=== PATIENT | male | born 1970 | race Hispanic/Latino ===

== ENCOUNTER 2018-09-04 10:24 | Inpatient (IN) | payer MEDICAID, MEDICARE ==
[2018-09-04 10:24] VITALS: BMI 55.9
--- NOTE | 2018-09-04 10:47 | C.PDOC ---
History Of Present Illness 47 y/o male with PMH of hyperglycemia, asthma, depression, HTN, morbid obesity, presents for evaluation of a right lateral lower leg wound, present for the last 2 days. He denies any trauma or injury. Patient noticed the area became red, swollen, painful, and yesterday he developed a black eschar which began draining blood. Pain worsens with walking. He denies any nausea, vomiting, fever, chills, chest pain, SOB, numbness, weakness, paresthesias, dizziness, headache, vision changes, or any other associated symptoms. PMD: Dr. Justen Ochoa Time Seen by Provider: 09/04/18 10:38 Chief Complaint (Nursing): Lower Extremity Problem/Injury History Per: Patient History/Exam Limitations: no limitations Onset/Duration Of Symptoms: Days Current Symptoms Are (Timing): Still Present Past Medical History Reviewed: Historical Data, Nursing Documentation, Vital Signs Vital Signs: Last Vital Signs Temp 97.6 F 09/04/18 10:30 Pulse 106 H 09/04/18 10:30 Resp 18 09/04/18 10:30 BP 125/83 09/04/18 10:30 Pulse Ox 97 09/04/18 10:30 - Medical History PMH: Asthma, Depression, HTN, Hyperlipidemia Denies: Diabetes, Hepatitis, HIV, Chronic Kidney Disease, Seizures, Sexually Transmitted Disease - [facility] Procedures APPLICATION OF SPLINT (12/08/14) DPT ADMINISTRATION (02/10/15) INJECT/INFUSE NEC (10/03/14) TETANUS TOXOID ADMINIST (02/19/05) VENOUS CATHETERIZATION NEC (11/27/12) Family History: States: Unknown Family Hx - Social History Hx Tobacco Use: Yes Hx Alcohol Use: Yes Hx Substance Use: No - Immunization History Hx Tetanus Toxoid Vaccination: No Hx Influenza Vaccination: No Hx Pneumococcal Vaccination: No Review Of Systems Constitutional: Negative for: Fever, Chills, Sweats Eyes: Negative for: Vision Change ENT: Negative for: Nose Congestion Cardiovascular: Negative for: Chest Pain, Palpitations, Light Headedness Respiratory: Negative for: Cough, Shortness of Breath Gastrointestinal: Negative for: Nausea, Vomiting, Abdominal Pain Musculoskeletal: Positive for: Leg Pain (RLE), Other (Swelling/open wound to RLE) Skin: Positive for: Other (redness, swelling, eschar, fluctuance to right lower lateral calf) Neurological: Negative for: Weakness, Numbness, Incoordination, Headache, Dizziness Physical Exam - Physical Exam Appears: Non-toxic, No Acute Distress, Unkempt, Other (Morbidly obese) Skin: Warm, Dry, Other (right lateral calf: 3cm diameter area of fluctuance with central eschar and surrounding warmth and erythema; small amount of bloody d rainage noted; right heel with chronic ulcer, no signs of acute infection) Head: Atraumatic, Normacephalic Eye(s): bilateral: Normal Inspection, PERRL, EOMI Oral Mucosa: Moist Neck: Normal ROM, Supple Chest: Symmetrical Cardiovascular: Rhythm Regular, No Murmur Respiratory: Normal Breath Sounds, No Accessory Muscle Use Gastrointestinal/Abdominal: Soft, No Tenderness, No Distention Extremity: Normal ROM, Tenderness (right lateral calf with associated redness and warmth; suspicious for cellulitis ), Capillary Refill (<2s), No Deformity, Swelling (bilateral edema; R>L), Other (See Skin Exam) Extremity: Bilateral: Atraumatic, Normal ROM Pulses: Left Dorsalis Pedis: Normal, Right Dorsalis Pedis: Normal Neurological/Psych: Oriented x3, Normal Speech, Normal Motor, Normal Sensation Gait: Steady ED Course And Treatment - Laboratory Results Result Diagrams: 09/04/18 11:10 09/04/18 11:10 ECG: Viewed By Me (Signed by Dr. Gonsalez) ECG Rhythm: Sinus Rhythm ECG Interpretation: No Acute Changes Interpretation Of ECG: Rate 93; NSR; Normal Intervals; No STEMI or other signs of acute ischemia Rate From EC O2 Sat by Pulse Oximetry: 97 (RA) Pulse Ox Interpretation: Normal - Radiology CXR: Viewed By Me, Read By Radiologist CXR Interpretation: Yes: No Acute Disease Medical Decision Making Medical Decision Making: Initial Plan: - EKG - Labs - Chest x-ray - Doppler US, bilateral LE - Surgical consult - IV fluids - Tylenol Labwork significant for glucose of 336, will order IVF, glucose has been elevated in the past, pt not on medication; insulin naive. discussed with ED attending Dr. Gonsalez who agrees with plan of care otherwise unremarkable 11:[address] Romel Ochoa, accepts patient for admission on his service to med/surg floor with diagnosis of right lower leg cellulitis with abscess. Requests surgical consult with Dr. Torres 11:[address] Carey, surgery, as per Dr. Ochoa's request. Recommends wound culture, XR and CT of right lower extremity, type and screen, NPO diet, ID consult. States patient may need OR debridement. Expresses concern for necrotizing fasciitis. States the surgical and ID team will take responsibility for antibiotic choice. global president notified, and will come to evaluate patient in the ED. 12:45 Received call from vascular lab, patient is refusing venous duplex studies. global president here to evaluate patient at bedside Disposition Counseled Patient/Family Regarding: Studies Performed, Diagnosis - Disposition Disposition: HOSPITALIZED Disposition Time: 11:45 Condition: STABLE - Clinical Impression Clinical Impression: Abscess of leg, right, Lower extremity cellulitis, Hyperglycemia - PA / WEB PAGE DEVELOPER / Resident Statement MD/DO has reviewed & agrees with the documentation as recorded. - Scribe Statement The provider has reviewed the documentation as recorded by the Ham Medina All medical record entries made by the Emoryibcristian were at my direction and personally dictated by me. I have reviewed the chart and agree that the record accurately reflects my personal performance of the history, physical exam, medical decision making, and the department course for this patient. I have also personally directed, reviewed, and agree with the discharge instructions and disposition.
[2018-09-04 11:17] LABS: BASO % 0.6 % (0.0-2.0); EOS % 0.9 % (0.0-4.0); LYMPH # 0.7 K/uL (1.0-4.3); MEAN CORPUSCULAR HEMOGLOBIN 30.6 pg (27.0-31.0); MEAN CORPUSCULAR HGB CONC 32.6 g/dL (33.0-37.0); MEAN PLATELET VOLUME 7.5 fL (7.2-11.7); MONO # 0.3 K/uL (0.0-0.8); MONO % 5.5 % (0.0-10.0); NEUT # 3.6 K/uL (1.8-7.0); RBC 4.24 Mil/uL (4.40-5.90); RED CELL DISTRIBUTION WIDTH 14.7 % (11.5-14.5); WHITE BLOOD COUNT 4.7 K/uL (4.8-10.8)
[2018-09-04 11:18] LABS: MEAN CELL VOLUME 93.9 fL (80.0-94.0)
[2018-09-04 11:26] LABS: ALB/GLOB RATIO 1.2 (1.0-2.1); ALBUMIN 3.9 g/dL (3.5-5.0); ALT/SGPT 43 U/L (21-72); AST/SGOT 23 U/L (17-59); BLOOD UREA NITROGEN 13 mg/dL (9-20); CALCIUM 8.6 mg/dl (8.6-10.4); GFR NON-AFRICAN AMERICAN > 60; INR 1.2; PROTHROMBIN TIME 13.3 SECONDS (9.7-12.2)
[2018-09-04] MEDS ORDERED: Sodium Chloride 0.9% 1,000 ML IV ONE (11:30)
--- NOTE | 2018-09-04 13:16 | RAD ---
Date of service: 09/04/2018 PROCEDURE: Radiographs of the right tibia and fibula. HISTORY: wound lateral calf COMPARISON: None available TECHNIQUE: Frontal and lateral views obtained. FINDINGS: BONES: Bone alignment and mineralization are normal. There is no acute displaced fracture or bone destruction. No evidence for bone erosion. JOINT SPACES: Unremarkable. OTHER FINDINGS: Mild subcutaneous edema in the leg. IMPRESSION: No acute fracture or bone destruction. No radiographic evidence for osteomyelitis.
--- NOTE | 2018-09-04 13:18 | RAD ---
Date of service: 09/04/2018 PROCEDURE: Right Foot Radiographs. HISTORY: chronic heel wound COMPARISON: None. FINDINGS: BONES: Bone alignment and mineralization are normal. There is no acute displaced fracture or bone destruction. There is sclerosis in the posterior calcaneus. JOINTS: Normal. SOFT TISSUES: There is a large soft tissue defect in the heel. OTHER FINDINGS: None. IMPRESSION: Large soft tissue defect in the heel corresponding to known ulcer. Sclerosis in the posterior calcaneus could be reactive however underlying osteomyelitis cannot be entirely excluded. If clinically indicated, correlation with MRI without and with intravenous contrast may be performed.
--- NOTE | 2018-09-04 13:19 | RAD ---
Date of service: 09/04/2018 HISTORY: admission COMPARISON: 12/03/2012. FINDINGS: LUNGS: The lungs are well inflated and clear. PLEURA: No pleural effusions or pneumothorax. CARDIOVASCULAR: The heart is normal in size. No aortic atherosclerotic calcifications present. OSSEOUS STRUCTURES: Within normal limits for the patient's age. VISUALIZED UPPER ABDOMEN: Normal. OTHER FINDINGS: None. IMPRESSION: No active pulmonary disease.
--- NOTE | 2018-09-04 14:21 | CP.PCM.CON ---
<KeithaanTyler aleman D - Last Filed: 09/04/18 14:00> History of Present Illness - History of Present Illness History of Present Illness: SURGERY CONSULT NOTE FOR DR. CAREY Reason: right leg wound 47M with PMHx of cellulitis, HTN, hyperlipidemia presents with right leg swelling and a necrotic lesion on his right lower leg. The lesion is painful and he rates the pain 7/10. The patient describes the pain as sharp and constant. The pain is mostly around the lesion and does not radiate anywhere. There is erythema around the swelling and soreness. The lesion He also has bilateral non-pitting edema. He took Ibuprofen 800mg yesterday which minimally alleviated his pain. The patient denies fever, chills, loss of sensation, sweating, chest pain, joint pain, muscle pain, SOB. The patient gained 120 lbs in the last year. PMHx: HTN, Asthma, Hyperlipidemia, Depression, Psoriasis, cellulitis PSurgical Hx: None Past Hospitalizations: Bilateral Cellulitis ([facility] in 2016) Allergies: NKDA Meds: Proair (use when needed), Ibuprofen (800mg) FHx: Mother (67, HTN), Father (history not known) Social: 25py smoking hx, smokes weed (a joint/wk), occassionally drinks alcohol, lives in [place], No current job Past Patient History - Infectious Disease Hx of Infectious Diseases: None - Tetanus Immunizations Tetanus Immunization: Unknown - Past Social History Smoking Status: Never Smoked - CARDIAC Hx Hypertension: Yes - PULMONARY Hx Asthma: Yes - NEUROLOGICAL Hx Seizures: No - HEENT Hx HEENT Problems: No - RENAL Hx Chronic Kidney Disease: No - ENDOCRINE/METABOLIC Hx Endocrine Disorders: Yes Hx Diabetes Mellitus Type 2: Yes - HEMATOLOGICAL/ONCOLOGICAL Hx Human Immunodeficiency Virus (HIV): No - INTEGUMENTARY Hx Dermatological Problems: No - MUSCULOSKELETAL/RHEUMATOLOGICAL Hx Musculoskeletal Disorders: No - GASTROINTESTINAL Hx Gastrointestinal Disorders: No - GENITOURINARY/GYNECOLOGICAL Hx Sexually Transmitted Disorders: No - PSYCHIATRIC Hx Depression: Yes Hx Substance Use: No - SURGICAL HISTORY Hx Surgeries: No - ANESTHESIA Hx Anesthesia: No Hx Anesthesia Reactions: No Hx Malignant Hyperthermia: No Meds Allergies/Adverse Reactions: Allergies Allergy/AdvReac Type Severity Reaction Status Date / Time No Known Allergies Allergy Verified 08/07/18 22:26 - Medications Medications: Current Medications Piperacillin Sod/Tazobactam (Sod 3.375 gm/ Sodium Chloride) 100 mls @ 200 mls/hr IVPB Q6H [facility]; Protocol Vancomycin HCl 1 gm/ Sodium (Chloride) 250 mls @ 166.7 mls/hr IVPB Q24H [facility]; Protocol Physical Exam - Constitutional Additional comments: Uncomfortable 2/2 pain - Head Exam Head Exam: ATRAUMATIC, NORMOCEPHALIC - Respiratory Exam Respiratory Exam: Clear to Auscultation Bilateral, NORMAL BREATHING PATTERN - Cardiovascular Exam Cardiovascular Exam: REGULAR RHYTHM, +S1, +S2 - GI/Abdominal Exam GI & Abdominal Exam: Normal Bowel Sounds, Soft. absent: Distended, Firm, Guarding, Rebound, Rigid, Tenderness - Extremities Exam Additional comments: right lower extremity lesion in the lower leg on the lateral side measuring 2.5 x 2.5 inches surrounded by area of mild erythema. Underneath lesion which was necrotic skin, was serosanguinous/purulent fluid. Approximately 4cc of fluid Area tender to palpation Normal sensation Normal motor Bilateral non-pitting edema and thick skin Dopplerable signals DP/PT b/l - Neurological Exam Neurological exam: Alert, Oriented x3 - Psychiatric Exam Psychiatric exam: Normal Affect, Normal Mood - Skin Skin Exam: Dry, Intact, Normal Color, Warm Results - Vital Signs Recent Vital Signs: Last Vital Signs Temp 97.7 F 09/04/18 13:58 Pulse 91 H 09/04/18 13:58 Resp 18 09/04/18 13:58 BP 128/66 09/04/18 13:58 Pulse Ox 95 09/04/18 13:58 - Labs Result Diagrams: 09/04/18 11:10 09/04/18 11:10 Labs: Laboratory Results - last 24 hr 09/04/18 09/04/18 09/04/18 11:10 11:10 11:10 WBC 4.7 L RBC 4.24 L Hgb 13.0 Hct 39.8 MCV 93.9 D MCH 30.6 MCHC 32.6 L RDW 14.7 H Plt Count 131 MPV 7.5 Neut % (Auto) 78.0 H Lymph % (Auto) 15.0 L [place] % (Auto) 5.5 Eos % (Auto) 0.9 Baso % (Auto) 0.6 Neut # (Auto) 3.6 Lymph # (Auto) 0.7 L [place] # (Auto) 0.3 Eos # (Auto) 0.0 Baso # (Auto) 0.0 PT 13.3 H INR 1.2 APTT 32 Sodium 135 Potassium 4.4 Chloride 98 Carbon Dioxide 31 H Anion Gap 11 BUN 13 Creatinine 0.8 Est GFR ( Amer) > 60 Est GFR (Non-Af Amer) > 60 Random Glucose 336 H D Calcium 8.6 Total Bilirubin 0.9 AST 23 ALT 43 Alkaline Phosphatase 99 Total Protein 7.3 Albumin 3.9 Globulin 3.4 Albumin/Globulin Ratio 1.2 Assessment & Plan - Assessment and Plan (Free Text) Assessment: 47M with right lower extremity abscess and cellulitis Plan: -NPO -IVF -Pain control -antibiotics -prepare for OR for debridement -Discussed with Dr. Carey -Tyler Hernandez, PGY3 <Benoit Carey - Last Filed: 09/09/18 21:46> Meds - Medications Medications: Current Medications Albuterol (Ventolin Hfa 90 Mcg/Actuation (8 G)) 2 puff IH RQ6 PRN PRN Reason: Shortness of Breath Hydrochlorothiazide (Hydrodiuril) 25 mg PO DAILY [facility] Last Admin: 09/09/18 14:04 Dose: 25 mg Vancomycin HCl 1,250 mg/ (Sodium Chloride) 250 mls @ 166.6 mls/hr IVPB Q12H [facility]; Protocol Insulin Aspart (Novolog) 0 unit SC ACHS [facility]; Protocol Last Admin: 09/09/18 21:28 Dose: Not Given Morphine Sulfate (Morphine) 2 mg IVP Q6H PRN PRN Reason: Pain, severe (8-10) Last Admin: 09/09/18 20:50 Dose: 2 mg Pantoprazole Sodium (Protonix Ec Tab) 40 mg PO DAILY [facility] Last Admin: 09/09/18 09:25 Dose: 40 mg Results - Vital Signs Recent Vital Signs: Last Vital Signs Temp 98.2 F 09/09/18 17:24 Pulse 74 09/09/18 17:24 Resp 20 09/09/18 17:24 BP 132/78 09/09/18 17:24 Pulse Ox 94 L 09/09/18 17:24 - Labs Result Diagrams: 09/08/18 11:18 09/08/18 11:18 Labs: Laboratory Results - last 24 hr 09/08/18 09/09/18 09/09/18 21:16 04:04 05:28 POC Glucose (mg/dL) 211 H 190 H Vancomycin Trough 15.2 H 09/09/18 09/09/18 11:39 16:41 POC Glucose (mg/dL) 234 H 160 H Vancomycin Trough Attending/Attestation - Attestation I have personally seen and examined this patient.: Yes I have fully participated in the care of the patient.: Yes I have reviewed all pertinent clinical information: Yes Notes (Text): Pt was seen and examined at bedside Agree with above note and assessment Pt with right leg cellulitis and open wound Right Leg: Mild tender, Cellulitis present Labs and radiology reviewed Ass: Leg cellulitis, wound necrosis, morbid obesity Plan : NPO, IVF OR for Leg wound debridement and washout IV antibiotics ID consult Control blood sugar Plan d.w pt in detail. Risk and benefit explained in detail.
[2018-09-04] MEDS: Piperacillin/Tazobact 3.375 GM in Sodium Chloride 100 ML IVPB SCH ×2 (16:35→20:15)
--- NOTE | 2018-09-04 17:59 | CP.PCM.HP ---
Past Patient History - Infectious Disease Hx of Infectious Diseases: None - Tetanus Immunizations Tetanus Immunization: Unknown - Past Social History Smoking Status: Never Smoked - CARDIAC Hx Hypertension: Yes - PULMONARY Hx Asthma: Yes - NEUROLOGICAL Hx Seizures: No - HEENT Hx HEENT Problems: No - RENAL Hx Chronic Kidney Disease: No - ENDOCRINE/METABOLIC Hx Endocrine Disorders: Yes Hx Diabetes Mellitus Type 2: Yes - HEMATOLOGICAL/ONCOLOGICAL Hx Human Immunodeficiency Virus (HIV): No - INTEGUMENTARY Hx Dermatological Problems: No - MUSCULOSKELETAL/RHEUMATOLOGICAL Hx Musculoskeletal Disorders: No - GASTROINTESTINAL Hx Gastrointestinal Disorders: No - GENITOURINARY/GYNECOLOGICAL Hx Sexually Transmitted Disorders: No - PSYCHIATRIC Hx Depression: Yes Hx Substance Use: No - SURGICAL HISTORY Hx Surgeries: No - ANESTHESIA Hx Anesthesia: No Hx Anesthesia Reactions: No Hx Malignant Hyperthermia: No Meds Allergies/Adverse Reactions: Allergies Allergy/AdvReac Type Severity Reaction Status Date / Time No Known Allergies Allergy Verified 08/07/18 22:26 Physical Exam - Constitutional Appears: Well - Head Exam Head Exam: ATRAUMATIC, NORMAL INSPECTION, NORMOCEPHALIC - Eye Exam Eye Exam: EOMI, Normal appearance, PERRL Pupil Exam: NORMAL ACCOMODATION, PERRL - ENT Exam ENT Exam: Mucous Membranes Moist, Normal Exam - Neck Exam Neck exam: Positive for: Normal Inspection - Respiratory Exam Respiratory Exam: Decreased Breath Sounds - Cardiovascular Exam Cardiovascular Exam: REGULAR RHYTHM, +S1, +S2 - GI/Abdominal Exam GI & Abdominal Exam: Diminished Bowel Sounds, Soft - Rectal Exam Rectal Exam: Deferred Results - Vital Signs Recent Vital Signs: Last Vital Signs Temp 97.9 F 09/04/18 15:00 Pulse 90 09/04/18 15:00 Resp 20 09/04/18 15:00 BP 153/84 H 09/04/18 15:00 Pulse Ox 95 09/04/18 15:00 - Labs Result Diagrams: 09/04/18 11:10 09/04/18 11:10 Labs: Laboratory Results - last 24 hr 09/04/18 09/04/18 09/04/18 11:10 11:10 11:10 WBC 4.7 L RBC 4.24 L Hgb 13.0 Hct 39.8 MCV 93.9 D MCH 30.6 MCHC 32.6 L RDW 14.7 H Plt Count 131 MPV 7.5 Neut % (Auto) 78.0 H Lymph % (Auto) 15.0 L [place] % (Auto) 5.5 Eos % (Auto) 0.9 Baso % (Auto) 0.6 Neut # (Auto) 3.6 Lymph # (Auto) 0.7 L [place] # (Auto) 0.3 Eos # (Auto) 0.0 Baso # (Auto) 0.0 PT 13.3 H INR 1.2 APTT 32 Sodium 135 Potassium 4.4 Chloride 98 Carbon Dioxide 31 H Anion Gap 11 BUN 13 Creatinine 0.8 Est GFR ( Amer) > 60 Est GFR (Non-Af Amer) > 60 POC Glucose (mg/dL) Random Glucose 336 H D Calcium 8.6 Total Bilirubin 0.9 AST 23 ALT 43 Alkaline Phosphatase 99 Total Protein 7.3 Albumin 3.9 Globulin 3.4 Albumin/Globulin Ratio 1.2 09/04/18 16:04 WBC RBC Hgb Hct MCV MCH MCHC RDW Plt Count MPV Neut % (Auto) Lymph % (Auto) [place] % (Auto) Eos % (Auto) Baso % (Auto) Neut # (Auto) Lymph # (Auto) [place] # (Auto) Eos # (Auto) Baso # (Auto) PT INR APTT Sodium Potassium Chloride Carbon Dioxide Anion Gap BUN Creatinine Est GFR ( Amer) Est GFR (Non-Af Amer) POC Glucose (mg/dL) 214 H Random Glucose Calcium Total Bilirubin AST ALT Alkaline Phosphatase Total Protein Albumin Globulin Albumin/Globulin Ratio
--- NOTE | 2018-09-04 18:51 | CP.PCM.PN ---
<Tyler Hernandez - Last Filed: 09/04/18 18:51> Subjective - Date & Time of Evaluation Date of Evaluation: 09/04/18 Time of Evaluation: 15:00 - Subjective Subjective: Procedure Note for Dr. Carey PRE-OP DIAGNOSIS: Left leg abscess POST-OP DIAGNOSIS: Left leg abscess PROCEDURE: incision and drainage of abscess Performing Physician: Mary, PGY3, Anali, PGY3, Sarahi, PGY4 PROCEDURE: A timeout protocol was performed prior to initiating the procedure. The area was prepared and draped in the usual, sterile manner. The necrotic portion of the wound was debrided with sharp instruments taking care to maintain normal tissue. Below the necrotic tissue was serosanguinous/purulent material. The abscess was explored thoroughly and sequestered pockets were opened. There was no bleeding.Dressed with 4*4 and tape Followup: The patient tolerated the procedure well without complications. Standard post-procedure care is explained and return precautions are given. Objective - Vital Signs/Intake and Output Vital Signs (last 24 hours): Temp Pulse Resp BP Pulse Ox 97.9 F 90 20 153/84 H 95 09/04/18 15:00 09/04/18 15:00 09/04/18 15:00 09/04/18 15:00 09/04/18 18:18 - Medications Medications: Current Medications Albuterol (Ventolin Hfa 90 Mcg/Actuation (8 G)) 2 puff IH Q6 PRN PRN Reason: Shortness of Breath Piperacillin Sod/Tazobactam (Sod 3.375 gm/ Sodium Chloride) 100 mls @ 200 mls/hr IVPB Q6H [facility]; Protocol Last Admin: 09/04/18 16:35 Dose: 200 mls/hr Vancomycin HCl 1 gm/ Sodium (Chloride) 250 mls @ 166.7 mls/hr IVPB Q24H [facility]; Protocol Last Admin: 09/04/18 16:36 Dose: 166.7 mls/hr Sodium Chloride (Sodium Chloride 0.9%) 1,000 mls @ 125 mls/hr IV .Q8H [facility] Morphine Sulfate (Morphine) 2 mg IVP Q6H PRN PRN Reason: Pain, severe (8-10) Last Admin: 09/04/18 18:42 Dose: 2 mg Pantoprazole Sodium (Protonix Ec Tab) 40 mg PO DAILY [facility] - Labs Labs: 09/04/18 11:10 09/04/18 11:10 PT 13.3 SECONDS (9.7-12.2) H 09/04/18 11:10 INR 1.2 09/04/18 11:10 APTT 32 SECONDS (21-34) 09/04/18 11:10 <Benoit Carey - Last Filed: 09/09/18 21:48> Objective - Vital Signs/Intake and Output Vital Signs (last 24 hours): Temp Pulse Resp BP Pulse Ox 98.2 F 74 20 132/78 94 L 09/09/18 17:24 09/09/18 17:24 09/09/18 17:24 09/09/18 17:24 09/09/18 17:24 Intake and Output: 09/09/18 09/10/18 18:59 06:59 Intake Total 1050 Balance 1050 - Medications Medications: Current Medications Albuterol (Ventolin Hfa 90 Mcg/Actuation (8 G)) 2 puff IH RQ6 PRN PRN Reason: Shortness of Breath Hydrochlorothiazide (Hydrodiuril) 25 mg PO DAILY [facility] Last Admin: 09/09/18 14:04 Dose: 25 mg Vancomycin HCl 1,250 mg/ (Sodium Chloride) 250 mls @ 166.6 mls/hr IVPB Q12H [facility]; Protocol Insulin Aspart (Novolog) 0 unit SC ACHS [facility]; Protocol Last Admin: 09/09/18 21:28 Dose: Not Given Morphine Sulfate (Morphine) 2 mg IVP Q6H PRN PRN Reason: Pain, severe (8-10) Last Admin: 09/09/18 20:50 Dose: 2 mg Pantoprazole Sodium (Protonix Ec Tab) 40 mg PO DAILY [facility] Last Admin: 09/09/18 09:25 Dose: 40 mg - Labs Labs: 09/08/18 11:18 09/08/18 11:18 PT 13.3 SECONDS (9.7-12.2) H 09/04/18 11:10 INR 1.2 09/04/18 11:10 APTT 32 SECONDS (21-34) 09/04/18 11:10 Attending/Attestation - Attestation I have personally seen and examined this patient.: Yes I have fully participated in the care of the patient.: Yes I have reviewed all pertinent clinical information, including history, physical exam and plan: Yes Notes (Text): Correct site: Right leg wound
[2018-09-04] MEDS ORDERED: Iodixanol 320 MG/ML 100 ML BOTTLE IV ONE (20:30)
[2018-09-04] MEDS: Sodium Chloride 0.9% 1,000 ML IV SCH (22:18)
[2018-09-04] MEDS: Albuterol HFA 90 mcg/actuation (8 g) IH PRN (23:33)
[2018-09-05] MEDS: Piperacillin/Tazobact 3.375 GM in Sodium Chloride 100 ML IVPB SCH ×4 (01:24→20:03)
[2018-09-05 07:42] LABS: BASO % 0.6 % (0.0-2.0); EOS # 0.1 K/uL (0.0-0.7); EOS % 1.8 % (0.0-4.0); HEMOGLOBIN 12.2 g/dL (12.0-18.0); LYMPH # 0.8 K/uL (1.0-4.3); LYMPH % 22.6 % (20.0-40.0); MEAN CELL VOLUME 93.9 fL (80.0-94.0); MEAN CORPUSCULAR HEMOGLOBIN 31.2 pg (27.0-31.0); MEAN CORPUSCULAR HGB CONC 33.2 g/dL (33.0-37.0); MEAN PLATELET VOLUME 7.5 fL (7.2-11.7); MONO # 0.2 K/uL (0.0-0.8); MONO % 6.2 % (0.0-10.0); NEUT # 2.5 K/uL (1.8-7.0); NEUT % 68.8 % (50.0-75.0); RBC 3.93 Mil/uL (4.40-5.90); RED CELL DISTRIBUTION WIDTH 14.6 % (11.5-14.5); WHITE BLOOD COUNT 3.6 K/uL (4.8-10.8)
[2018-09-05 07:57] LABS: BLOOD UREA NITROGEN 16 mg/dL (9-20); CALCIUM 8.5 mg/dl (8.6-10.4); GFR NON-AFRICAN AMERICAN > 60
[2018-09-05] MEDS: Sodium Chloride 0.9% 1,000 ML IV SCH ×2 (08:37→14:08)
[2018-09-05] MEDS: Pantoprazole 40 mg EC Tab PO SCH (11:18)
--- NOTE | 2018-09-05 12:30 | CP.PCM.PN ---
<Sara Briones - Last Filed: 09/05/18 12:28> Subjective - Date & Time of Evaluation Date of Evaluation: 09/05/18 Time of Evaluation: 12:28 - Subjective Subjective: Surgery: Dr. aCrey Pt seen and examined. No acute overnight events. Pt expresses no desire to undergo surgery/anesthesia and states he understands the risks of refusing surgery. However, he is adamant that under no circumstance will he undergo anesthesia. He states he feels better and his R leg feels less swollen. He denies any fevers/chills. Admits to ambulating w/o difficulty. Objective - Vital Signs/Intake and Output Vital Signs (last 24 hours): Temp Pulse Resp BP Pulse Ox 99.1 F 76 20 130/97 H 97 09/05/18 07:04 09/05/18 07:04 09/05/18 07:04 09/05/18 07:04 09/05/18 07:35 - Medications Medications: Current Medications Albuterol (Ventolin Hfa 90 Mcg/Actuation (8 G)) 2 puff IH Q6 PRN PRN Reason: Shortness of Breath Last Admin: 09/04/18 23:33 Dose: 8 g Piperacillin Sod/Tazobactam (Sod 3.375 gm/ Sodium Chloride) 100 mls @ 200 mls/hr IVPB Q6H [facility]; Protocol Last Admin: 09/05/18 08:20 Dose: Not Given Vancomycin HCl 1 gm/ Sodium (Chloride) 250 mls @ 166.7 mls/hr IVPB Q24H [facility]; Protocol Last Admin: 09/04/18 16:36 Dose: 166.7 mls/hr Sodium Chloride (Sodium Chloride 0.9%) 1,000 mls @ 125 mls/hr IV .Q8H [facility] Last Admin: 09/05/18 08:37 Dose: Not Given Influenza Virus Vaccine (Flucelvax Quad 0502-1370 Syr) 60 mcg IM .ONCE ONE Stop: 09/06/18 10:01 Morphine Sulfate (Morphine) 2 mg IVP Q6H PRN PRN Reason: Pain, severe (8-10) Last Admin: 09/05/18 01:23 Dose: 2 mg Pantoprazole Sodium (Protonix Ec Tab) 40 mg PO DAILY [facility] Last Admin: 09/05/18 11:18 Dose: 40 mg - Labs Labs: 09/05/18 07:16 09/05/18 07:16 PT 13.3 SECONDS (9.7-12.2) H 09/04/18 11:10 INR 1.2 09/04/18 11:10 APTT 32 SECONDS (21-34) 09/04/18 11:10 - Constitutional Appears: Well, No Acute Distress - Head Exam Head Exam: ATRAUMATIC, NORMOCEPHALIC - ENT Exam ENT Exam: Mucous Membranes Moist - Respiratory Exam Respiratory Exam: NORMAL BREATHING PATTERN - Cardiovascular Exam Cardiovascular Exam: RRR - GI/Abdominal Exam GI & Abdominal Exam: Soft - Extremities Exam Additional comments: b/l LE with venous stasis. RLE with 2x2cm wound on the lateral leg with surrounding erythema which is now improved compared to prior exam. - Neurological Exam Neurological Exam: Alert, Awake, Oriented x3 - Skin Skin Exam: Dry, Warm Assessment and Plan - Assessment and Plan (Free Text) Assessment: 47M w/cellulitis/venous stasis of RLE Plan: - pt refusing OR for debridement/washout of wound - cont IV ABX per ID recs - cont to monitor - d/w Dr. Aurelio Briones <Benoit Carey - Last Filed: 09/09/18 21:53> Objective - Vital Signs/Intake and Output Vital Signs (last 24 hours): Temp Pulse Resp BP Pulse Ox 98.2 F 74 20 132/78 94 L 09/09/18 17:24 09/09/18 17:24 09/09/18 17:24 09/09/18 17:24 09/09/18 17:24 Intake and Output: 09/09/18 09/10/18 18:59 06:59 Intake Total 1050 Balance 1050 - Medications Medications: Current Medications Albuterol (Ventolin Hfa 90 Mcg/Actuation (8 G)) 2 puff IH RQ6 PRN PRN Reason: Shortness of Breath Hydrochlorothiazide (Hydrodiuril) 25 mg PO DAILY [facility] Last Admin: 09/09/18 14:04 Dose: 25 mg Vancomycin HCl 1,250 mg/ (Sodium Chloride) 250 mls @ 166.6 mls/hr IVPB Q12H [facility]; Protocol Insulin Aspart (Novolog) 0 unit SC ACHS [facility]; Protocol Last Admin: 09/09/18 21:28 Dose: Not Given Morphine Sulfate (Morphine) 2 mg IVP Q6H PRN PRN Reason: Pain, severe (8-10) Last Admin: 09/09/18 20:50 Dose: 2 mg Pantoprazole Sodium (Protonix Ec Tab) 40 mg PO DAILY [facility] Last Admin: 09/09/18 09:25 Dose: 40 mg - Labs Labs: 09/08/18 11:18 09/08/18 11:18 PT 13.3 SECONDS (9.7-12.2) H 09/04/18 11:10 INR 1.2 09/04/18 11:10 APTT 32 SECONDS (21-34) 09/04/18 11:10 Attending/Attestation - Attestation I have personally seen and examined this patient.: Yes I have fully participated in the care of the patient.: Yes I have reviewed all pertinent clinical information, including history, physical exam and plan: Yes Notes (Text): Pt was seen and examined at bedside Agree with above note and assessment Pt is refusing formal I & D and washout C.w IV antibiotics Local wound care Plan d.w pt in detail.
--- NOTE | 2018-09-05 13:57 | CP.PCM.CON ---
History of Present Illness - History of Present Illness History of Present Illness: 47M presents with right leg swelling and a necrotic lesion on his right lower leg. Over the last several days he developed severe pain and swelling of the right leg with a large necrotic lession on the lateral aspect of lower right leg I and D was done and cultures are pending PMHx: HTN, Asthma, Hyperlipidemia, Depression, Psoriasis, cellulitis PSurgical Hx: None Past Hospitalizations: Bilateral Cellulitis ([facility] in 2016) Allergies: NKDA Meds: Proair (use when needed), Ibuprofen (800mg) FHx: Mother (67, HTN), Father (history not known) Social: 25py smoking hx, smokes weed (a joint/wk), occassionally drinks alcohol, lives in [place], No current job Review of Systems - Review of Systems All systems: reviewed and no additional remarkable complaints except - Constitutional Constitutional: As Per HPI, Weight Gain - EENT Ears: absent: As Per HPI, Decreased Hearing, Ear Discharge, Ear Pain, Tinnitus, Abnormal Hearing, Disequilibrium, Dizziness, Other Nose/Mouth/Throat: absent: As Per HPI, Epistaxis, Nasal Congestion, Nasal Discharge, Nasal Obstruction, Nasal Trauma, Nose Pain, Post Nasal Drip, Sinus Pain, Sinus Pressure, Bleeding Gums, Change in Voice, Dental Pain, Dry Mouth, Dysphagia, Halitosis, Hoarsness, Lip Swelling, Mouth Lesions, Mouth Pain, Odynophagia, Sore Throat, Throat Swelling, Tongue Swelling, Facial Pain, Neck Pain, Neck Mass, Other - Cardiovascular Cardiovascular: absent: As Per HPI, Acrocyanosis, Chest Pain, Chest Pain at Rest, Chest Pain with Activity, Claudication, Diaphoresis, Dyspnea, Dyspnea on Exertion, Edema, Irregular Heart Rhythm, Pain Radiating to Arm/Neck/Jaw, Leg Edema, Leg Ulcers, Lightheadedness, Orthopnea, Palpitations, Paroxysmal Nocturnal Dyspnea, Pedal Edema, Radiating Pain, Rapid Heart Rate, Slow Heart Rate, Syncope, Other - Respiratory Respiratory: As Per HPI - Gastrointestinal Gastrointestinal: absent: As Per HPI, Abdominal Pain, Belching, Bloating, Change in Bowel Habits, Change in Stool Character, Coffee Ground Emesis, Constipation, Cramping, Diarrhea, Dyspepsia, Dysphagia, Early Satiety, Excessive Flatus, Fecal Incontinence, Heartburn, Hematemesis, Hematochezia, Loose Stools, Melena, Nausea, Odynophagia, Temesmus, Vomiting, Other - Genitourinary Genitourinary: absent: As Per HPI, Change in Urinary Stream, Difficulty Urinating, Dysuria, Flank Pain, Hematuria, Pyuria, Nocturia, Urinary Incontinence, Urinary Frequency, Urinary Hesitance, Urinary Urgency, Voiding Freq/Small Amts, Freq UTI, Hx Renal/Bladder Calculi, Hx /Renal Surgery, Bladder Distension, Other - Reproductive: Male Reproductive:Male: As Per HPI - Musculoskeletal Musculoskeletal: As Per HPI - Integumentary Integumentary: As Per HPI, Skin Pain, Wounds - Neurological Neurological: absent: As Per HPI, Abnormal Gait, Abnormal Hearing, Abnormal Movements, Abnormal Speech, Behavioral Changes, Burning Sensations, Confusion, Convulsions, Disequilibrium, Dizziness, Numbness, Focal Weakness, Frequent Falls, Headaches, Lack of Coordination, Loss of Vision, Memory Loss, Paresthesias, Radicular Pain, Restless Legs, Sensory Deficit, Syncope, Tingling, Tremor, Vertigo, Weakness, Other Visual Disturbances, Other - Psychiatric Psychiatric: absent: As Per HPI, Abnormal Sleep Pattern, Anhedonia, Anxiety, Auditory Hallucinations, Behavioral Changes, Change in Appetite, Change in Libido, Confusion, Depression, Difficulty Concentrating, Hallucinations, Homicidal Ideation, Hopelessness, Irritability, Memory Loss, Mood Swings, Panic Attacks, Paranoia, Suicidal Ideation, Visual Hallucinations, Tactile Hallucinations, Other - Endocrine Endocrine: absent: As Per HPI, Change in Body Appearance, Change in Libido, Cold Intolorance, Deepening of Voice, Excessive Sweating, Fatigue, Flushing, Heat Intolorance, Increase in Ring/Shoe/Hat Size, Palpitations, Polydipsia, Polyphagia, Polyuria, Other - Hematologic/Lymphatic Hematologic: absent: As Per HPI, Easy Bleeding, Easy Bruising, Lymphadenopathy, Other Past Patient History - Infectious Disease Hx of Infectious Diseases: None - Tetanus Immunizations Tetanus Immunization: Unknown - Past Social History Smoking Status: Never Smoked - CARDIAC Hx Hypertension: Yes - PULMONARY Hx Asthma: Yes - NEUROLOGICAL Hx Seizures: No - HEENT Hx HEENT Problems: No - RENAL Hx Chronic Kidney Disease: No - ENDOCRINE/METABOLIC Hx Endocrine Disorders: Yes Hx Diabetes Mellitus Type 2: Yes - HEMATOLOGICAL/ONCOLOGICAL Hx Human Immunodeficiency Virus (HIV): No - INTEGUMENTARY Hx Dermatological Problems: No - MUSCULOSKELETAL/RHEUMATOLOGICAL Hx Musculoskeletal Disorders: No - GASTROINTESTINAL Hx Gastrointestinal Disorders: No - GENITOURINARY/GYNECOLOGICAL Hx Sexually Transmitted Disorders: No - PSYCHIATRIC Hx Depression: Yes Hx Substance Use: No - SURGICAL HISTORY Hx Surgeries: No - ANESTHESIA Hx Anesthesia: No Hx Anesthesia Reactions: No Hx Malignant Hyperthermia: No Meds Allergies/Adverse Reactions: Allergies Allergy/AdvReac Type Severity Reaction Status Date / Time No Known Allergies Allergy Verified 08/07/18 22:26 - Medications Medications: Current Medications Albuterol (Ventolin Hfa 90 Mcg/Actuation (8 G)) 2 puff IH Q6 PRN PRN Reason: Shortness of Breath Last Admin: 09/04/18 23:33 Dose: 8 g Piperacillin Sod/Tazobactam (Sod 3.375 gm/ Sodium Chloride) 100 mls @ 200 mls/hr IVPB Q6H [facility]; Protocol Last Admin: 09/05/18 08:20 Dose: Not Given Vancomycin HCl 1 gm/ Sodium (Chloride) 250 mls @ 166.7 mls/hr IVPB Q24H [facility]; Protocol Last Admin: 09/04/18 16:36 Dose: 166.7 mls/hr Sodium Chloride (Sodium Chloride 0.9%) 1,000 mls @ 125 mls/hr IV .Q8H [facility] Last Admin: 09/05/18 08:37 Dose: Not Given Influenza Virus Vaccine (Flucelvax Quad 4721-8703 Syr) 60 mcg IM .ONCE ONE Stop: 09/06/18 10:01 Morphine Sulfate (Morphine) 2 mg IVP Q6H PRN PRN Reason: Pain, severe (8-10) Last Admin: 09/05/18 01:23 Dose: 2 mg Pantoprazole Sodium (Protonix Ec Tab) 40 mg PO DAILY [facility] Last Admin: 09/05/18 11:18 Dose: 40 mg Physical Exam - Constitutional Appears: Non-toxic, Chronically Ill - Head Exam Head Exam: ATRAUMATIC, NORMOCEPHALIC - Eye Exam Eye Exam: absent: Scleral icterus Pupil Exam: NORMAL ACCOMODATION - ENT Exam ENT Exam: Mucous Membranes Dry, Normal External Ear Exam, Normal Oropharynx - Neck Exam Neck exam: Negative for: Lymphadenopathy, Thyromegaly - Respiratory Exam Respiratory Exam: Decreased Breath Sounds, Rhonchi - Cardiovascular Exam Cardiovascular Exam: REGULAR RHYTHM, +S1, +S2 - GI/Abdominal Exam GI & Abdominal Exam: Diminished Bowel Sounds, Distended, Soft. absent: Te nderness - Rectal Exam Rectal Exam: Deferred - Exam Exam: NORMAL INSPECTION - Extremities Exam Extremities exam: Positive for: calf tenderness, tenderness, pedal pulses present. Negative for: pedal edema - Back Exam Back exam: absent: CVA tenderness (L), CVA tenderness (R), paraspinal tenderness - Neurological Exam Neurological exam: Alert, CN II-XII Intact, Oriented x3, Reflexes Normal - Psychiatric Exam Psychiatric exam: Depressed - Skin Skin Exam: Dry Results - Vital Signs Recent Vital Signs: Last Vital Signs Temp 99.1 F 09/05/18 07:04 Pulse 76 09/05/18 07:04 Resp 20 09/05/18 07:04 BP 130/97 H 09/05/18 07:04 Pulse Ox 97 09/05/18 07:35 - Labs Result Diagrams: 09/05/18 07:16 09/05/18 07:16 Labs: Laboratory Results - last 24 hr 09/04/18 09/04/18 09/05/18 16:04 21:54 06:50 WBC RBC Hgb Hct MCV MCH MCHC RDW Plt Count MPV Neut % (Auto) Lymph % (Auto) [place] % (Auto) Eos % (Auto) Baso % (Auto) Neut # (Auto) Lymph # (Auto) [place] # (Auto) Eos # (Auto) Baso # (Auto) Sodium Potassium Chloride Carbon Dioxide Anion Gap BUN Creatinine Est GFR ( Amer) Est GFR (Non-Af Amer) POC Glucose (mg/dL) 214 H 279 H 204 H Random Glucose Calcium C-Reactive Protein 09/05/18 09/05/18 09/05/18 07:16 07:16 11:37 WBC 3.6 L RBC 3.93 L Hgb 12.2 Hct 36.9 MCV 93.9 MCH 31.2 H MCHC 33.2 RDW 14.6 H Plt Count 132 MPV 7.5 Neut % (Auto) 68.8 Lymph % (Auto) 22.6 [place] % (Auto) 6.2 Eos % (Auto) 1.8 Baso % (Auto) 0.6 Neut # (Auto) 2.5 Lymph # (Auto) 0.8 L [place] # (Auto) 0.2 Eos # (Auto) 0.1 Baso # (Auto) 0.0 Sodium 135 Potassium 4.6 Chloride 98 Carbon Dioxide 31 H Anion Gap 11 BUN 16 Creatinine 0.9 Est GFR ( Amer) > 60 Est GFR (Non-Af Amer) > 60 POC Glucose (mg/dL) 272 H Random Glucose 220 H D Calcium 8.5 L C-Reactive Protein 73.00 H Assessment & Plan (1) Abscess of leg, right Status: Acute (2) Hyperglycemia Status: Acute (3) Lower extremity cellulitis Status: Acute - Assessment and Plan (Free Text) Assessment: morbidly obese sanjeev with possible new onset T2D is admitted with severe right leg necrotic abscess which required I and D await final cultures consider staph, strep, anaerobes and gram neg including pseudomonas in the differential empiric IV rx and wound care in progress Needs nutritional consultation , weight loss eval, smoking cessation and screening for GIN
--- NOTE | 2018-09-05 17:24 | CP.PCM.PN ---
Subjective - Date & Time of Evaluation Date of Evaluation: 09/05/18 Time of Evaluation: 10:30 - Subjective Subjective: clinically same Objective - Vital Signs/Intake and Output Vital Signs (last 24 hours): Temp Pulse Resp BP Pulse Ox 97.9 F 89 20 119/71 96 09/05/18 15:00 09/05/18 15:00 09/05/18 15:00 09/05/18 15:00 09/05/18 15:00 - Medications Medications: Current Medications Albuterol (Ventolin Hfa 90 Mcg/Actuation (8 G)) 2 puff IH Q6 PRN PRN Reason: Shortness of Breath Last Admin: 09/04/18 23:33 Dose: 8 g Piperacillin Sod/Tazobactam (Sod 3.375 gm/ Sodium Chloride) 100 mls @ 200 mls/hr IVPB Q6H [facility]; Protocol Last Admin: 09/05/18 14:06 Dose: 200 mls/hr Vancomycin HCl 1 gm/ Sodium (Chloride) 250 mls @ 166.7 mls/hr IVPB Q24H [facility]; Protocol Last Admin: 09/05/18 14:06 Dose: 166.7 mls/hr Sodium Chloride (Sodium Chloride 0.9%) 1,000 mls @ 125 mls/hr IV .Q8H [facility] Last Admin: 09/05/18 14:08 Dose: Not Given Influenza Virus Vaccine (Flucelvax Quad 1320-8234 Syr) 60 mcg IM .ONCE ONE Stop: 09/06/18 10:01 Morphine Sulfate (Morphine) 2 mg IVP Q6H PRN PRN Reason: Pain, severe (8-10) Last Admin: 09/05/18 01:23 Dose: 2 mg Pantoprazole Sodium (Protonix Ec Tab) 40 mg PO DAILY [facility] Last Admin: 09/05/18 11:18 Dose: 40 mg - Labs Labs: 09/05/18 07:16 09/05/18 07:16 PT 13.3 SECONDS (9.7-12.2) H 09/04/18 11:10 INR 1.2 09/04/18 11:10 APTT 32 SECONDS (21-34) 09/04/18 11:10 - Constitutional Appears: Well - Head Exam Head Exam: ATRAUMATIC, NORMAL INSPECTION, NORMOCEPHALIC - Eye Exam Eye Exam: EOMI, Normal appearance, PERRL Pupil Exam: NORMAL ACCOMODATION, PERRL - ENT Exam ENT Exam: Mucous Membranes Moist, Normal Exam - Neck Exam Neck Exam: Full ROM, Normal Inspection. absent: Lymphadenopathy - Respiratory Exam Respiratory Exam: Decreased Breath Sounds - Cardiovascular Exam Cardiovascular Exam: REGULAR RHYTHM, +S1, +S2 - GI/Abdominal Exam GI & Abdominal Exam: Soft, Diminished Bowel Sounds - Rectal Exam Rectal Exam: Deferred
--- NOTE | 2018-09-05 17:42 | CT ---
CT right lower extremity HISTORY: Wound. Abscess. Comparison: None available. Technique: Multiple contiguous axial images were performed through the right tibia and fibula without the use of intravenous contrast. Subsequently, sagittal and coronal reformatted images were obtained. This CT exam was performed using one or more of the following dose reduction techniques: Automated exposure control, adjustment of the mA and/or kV according to patient size, and/or use of iterative reconstruction technique. Findings: At the site of the external marker, there is a 1.8 centimeter defect/ulcer within the lateral soft tissues at the level of the mid tibia and fibula. At that level, there is some confluent organizing reticulation and edema measuring up to 1.8 x 1.3 centimeters suggestive for some developing phlegmonous changes but without evidence of discrete abscess collection. There is extension to the adjacent lateral sided musculature. Prominent varicosities seen within medial subcutaneous soft tissues. Diffuse circumferential reticulation and edema within the soft tissues suggestive for a cellulitis. Mild fatty atrophy of the soleus musculature. Visualized osseous structures are grossly preserved. Impression: At the site of the external marker, there is a 1.8 centimeter defect/ulcer within the lateral soft tissues at the level of the mid tibia and fibula. At that level, there is some confluent organizing reticulation and edema measuring up to 1.8 x 1.3 centimeters suggestive for some developing phlegmonous changes but without evidence of discrete abscess collection. There is extension to the adjacent lateral sided musculature. Prominent varicosities seen within medial subcutaneous soft tissues. Diffuse circumferential reticulation and edema within the soft tissues suggestive for a cellulitis. Continued interval follow-up with MRI may be helpful if clinically indicated. A preliminary report was generated at 9:54 p.m. on 09/04/[address] Fuad Hankins from [facility].
[2018-09-05] MEDS: Albuterol HFA 90 mcg/actuation (8 g) IH PRN (20:02)
[2018-09-05 20:27] LABS: SQUAMOUS EPITHIAL < 1 /hpf (0-5); URINE BILIRUBIN NEGATIVE (NEGATIVE); URINE BLOOD 3+ (NEGATIVE); URINE CLARITY Clear (Clear); URINE COLOR Yellow (YELLOW); URINE GLUCOSE (UA) 3+ mg/dL (Normal); URINE LEUKOCYTE ESTERASE NEG Leu/uL (Negative); URINE PROTEIN NEGATIVE (NEGATIVE)
--- NOTE | 2018-09-05 21:51 | CARD ---
APPROVED REPORT Date of service: 09/04/2018 EKG Measurement Heart [id number] <Conclusion> Normal sinus rhythm Normal ECG
[2018-09-06] MEDS: Piperacillin/Tazobact 3.375 GM in Sodium Chloride 100 ML IVPB SCH ×4 (01:34→21:08)
[2018-09-06] MEDS: Sodium Chloride 0.9% 1,000 ML IV SCH ×3 (06:48→17:30)
[2018-09-06 07:42] LABS: BASO % 0.6 % (0.0-2.0); EOS # 0.1 K/uL (0.0-0.7); EOS % 1.4 % (0.0-4.0); HEMOGLOBIN 12.9 g/dL (12.0-18.0); LYMPH # 0.8 K/uL (1.0-4.3); LYMPH % 20.4 % (20.0-40.0); MEAN CELL VOLUME 93.7 fL (80.0-94.0); MEAN CORPUSCULAR HEMOGLOBIN 31.1 pg (27.0-31.0); MEAN CORPUSCULAR HGB CONC 33.2 g/dL (33.0-37.0); MEAN PLATELET VOLUME 7.2 fL (7.2-11.7); MONO # 0.2 K/uL (0.0-0.8); MONO % 4.2 % (0.0-10.0); NEUT # 2.7 K/uL (1.8-7.0); NEUT % 73.4 % (50.0-75.0); RBC 4.13 Mil/uL (4.40-5.90); RED CELL DISTRIBUTION WIDTH 14.4 % (11.5-14.5); WHITE BLOOD COUNT 3.7 K/uL (4.8-10.8)
[2018-09-06 07:59] LABS: BLOOD UREA NITROGEN 14 mg/dL (9-20); CALCIUM 8.5 mg/dl (8.6-10.4); GFR NON-AFRICAN AMERICAN > 60
[2018-09-06] MEDS ORDERED: Influenza Vaccine 60 mcg/0.5 mL SYR (4YR UP) IM ONE ×2 (10:00→11:45)
[2018-09-06] MEDS: Pantoprazole 40 mg EC Tab PO SCH (11:31)
[2018-09-06] MEDS: Vancomycin 1 gm/NS 200 ml 1 GM/200 ML BAG IVPB SCH (13:46)
[2018-09-06] MEDS: (Novolog) Insulin Aspart, Recombinant 100 u/ml 10 ml vial SC SCH ×2 (17:45→21:01)
--- NOTE | 2018-09-06 19:40 | CP.PCM.PN ---
Subjective - Date & Time of Evaluation Date of Evaluation: 09/06/18 Time of Evaluation: 08:00 - Subjective Subjective: afeb c/o pain Objective - Vital Signs/Intake and Output Vital Signs (last 24 hours): Temp Pulse Resp BP Pulse Ox 97.6 F 77 18 133/82 97 09/06/18 17:04 09/06/18 17:04 09/06/18 17:04 09/06/18 17:04 09/06/18 17:04 - Medications Medications: Current Medications Albuterol (Ventolin Hfa 90 Mcg/Actuation (8 G)) 2 puff IH Q6 PRN PRN Reason: Shortness of Breath Last Admin: 09/05/18 20:02 Dose: 2 puff Piperacillin Sod/Tazobactam (Sod 3.375 gm/ Sodium Chloride) 100 mls @ 200 mls/hr IVPB Q6H [facility]; Protocol Last Admin: 09/06/18 15:22 Dose: 200 mls/hr Sodium Chloride (Sodium Chloride 0.9%) 1,000 mls @ 125 mls/hr IV .Q8H [facility] Last Admin: 09/06/18 17:30 Dose: Not Given Vancomycin/Sodium Chloride (Vancomycin 1 Gm/Ns 200 Ml) 1 gm in 200 mls @ 133 mls/hr IVPB Q12H [facility]; Protocol Stop: 09/11/18 13:01 Last Admin: 09/06/18 13:46 Dose: 133 mls/hr Insulin Aspart (Novolog) 0 unit SC ACHS [facility]; Protocol Last Admin: 09/06/18 17:45 Dose: 1 unit Morphine Sulfate (Morphine) 2 mg IVP Q6H PRN PRN Reason: Pain, severe (8-10) Last Admin: 09/06/18 13:47 Dose: 2 mg Pantoprazole Sodium (Protonix Ec Tab) 40 mg PO DAILY [facility] Last Admin: 09/06/18 11:31 Dose: 40 mg - Labs Labs: 09/06/18 07:22 09/06/18 07:22 PT 13.3 SECONDS (9.7-12.2) H 09/04/18 11:10 INR 1.2 09/04/18 11:10 APTT 32 SECONDS (21-34) 09/04/18 11:10 - Constitutional Appears: Non-toxic, No Acute Distress, Chronically Ill - Head Exam Head Exam: ATRAUMATIC, NORMAL INSPECTION, NORMOCEPHALIC - Eye Exam Eye Exam: EOMI, Normal appearance, PERRL Pupil Exam: NORMAL ACCOMODATION, PERRL - ENT Exam ENT Exam: Mucous Membranes Moist, Normal Exam - Neck Exam Neck Exam: Full ROM, Normal Inspection. absent: Lymphadenopathy - Respiratory Exam Respiratory Exam: Clear to Ausculation Bilateral, NORMAL BREATHING PATTERN - Cardiovascular Exam Cardiovascular Exam: REGULAR RHYTHM, +S1, +S2. absent: Murmur - GI/Abdominal Exam GI & Abdominal Exam: Soft, Normal Bowel Sounds. absent: Tenderness - Rectal Exam Rectal Exam: NORMAL INSPECTION - Exam Exam: Circumcision, NORMAL INSPECTION External exam: NORMAL EXTERNAL EXAM Speculum exam: NORMAL SPECULUM EXAM Bimanual exam: NORMAL BIMANUAL EXAM - Extremities Exam Extremities Exam: Full ROM, Pedal Edema, Tenderness. absent: Joint Swelling, Normal Inspection Additional comments: swelling both legs wound dry - Back Exam Back Exam: NORMAL INSPECTION - Neurological Exam Neurological Exam: Alert, Awake, CN II-XII Intact, Normal Gait, Oriented x3 - Psychiatric Exam Psychiatric exam: Normal Affect, Normal Mood - Skin Skin Exam: Dry, Intact, Normal Color, Warm Assessment and Plan (1) Abscess of leg, right Status: Acute (2) Hyperglycemia Status: Acute (3) Lower extremity cellulitis Status: Acute - Assessment and Plan (Free Text) Assessment: cont iv rx check levels vanco
[2018-09-07] MEDS: Piperacillin/Tazobact 3.375 GM in Sodium Chloride 100 ML IVPB SCH ×3 (03:27→14:03)
[2018-09-07 06:28] LABS: BASO % 0.5 % (0.0-2.0); EOS # 0.1 K/uL (0.0-0.7); EOS % 1.5 % (0.0-4.0); HEMOGLOBIN 12.9 g/dL (12.0-18.0); LYMPH % 22.7 % (20.0-40.0); MEAN CELL VOLUME 94.7 fL (80.0-94.0); MEAN CORPUSCULAR HGB CONC 32.7 g/dL (33.0-37.0); MEAN PLATELET VOLUME 7.2 fL (7.2-11.7); MONO # 0.2 K/uL (0.0-0.8); NEUT % 70.3 % (50.0-75.0); NRBC % 0.2 % (0.0-2.0); RBC 4.17 Mil/uL (4.40-5.90); RED CELL DISTRIBUTION WIDTH 14.7 % (11.5-14.5); WHITE BLOOD COUNT 4.3 K/uL (4.8-10.8)
[2018-09-07 06:37] LABS: BLOOD UREA NITROGEN 13 mg/dL (9-20); CALCIUM 8.8 mg/dl (8.6-10.4); GFR NON-AFRICAN AMERICAN > 60
[2018-09-07] MEDS: Vancomycin 1 gm/NS 200 ml 1 GM/200 ML BAG IVPB SCH ×3 (06:42→21:18)
[2018-09-07] MEDS: Sodium Chloride 0.9% 1,000 ML IV SCH ×5 (06:43→23:57)
[2018-09-07] MEDS: Pantoprazole 40 mg EC Tab PO SCH (09:40)
[2018-09-07] MEDS: (Novolog) Insulin Aspart, Recombinant 100 u/ml 10 ml vial SC SCH ×4 (09:40→21:20)
[2018-09-07] MEDS ORDERED: Albuterol HFA 90 mcg/actuation (8 g) IH PRN (17:15)
--- NOTE | 2018-09-07 19:52 | CP.PCM.PN ---
Subjective - Date & Time of Evaluation Date of Evaluation: 09/07/18 Time of Evaluation: 09:00 - Subjective Subjective: clinically same Objective - Vital Signs/Intake and Output Vital Signs (last 24 hours): Temp Pulse Resp BP Pulse Ox 98.3 F 79 20 155/96 H 95 09/07/18 15:30 09/07/18 15:30 09/07/18 15:30 09/07/18 15:30 09/07/18 15:30 - Medications Medications: Current Medications Albuterol (Ventolin Hfa 90 Mcg/Actuation (8 G)) 2 puff IH RQ6 PRN PRN Reason: Shortness of Breath Sodium Chloride (Sodium Chloride 0.9%) 1,000 mls @ 125 mls/hr IV .Q8H [facility] Last Admin: 09/07/18 16:07 Dose: Not Given Vancomycin/Sodium Chloride (Vancomycin 1 Gm/Ns 200 Ml) 1 gm in 200 mls @ 133 mls/hr IVPB Q8H [facility]; Protocol Stop: 09/12/18 21:01 Insulin Aspart (Novolog) 0 unit SC ACHS [facility]; Protocol Last Admin: 09/07/18 16:49 Dose: 2 unit Morphine Sulfate (Morphine) 2 mg IVP Q6H PRN PRN Reason: Pain, severe (8-10) Last Admin: 09/07/18 16:46 Dose: 2 mg Pantoprazole Sodium (Protonix Ec Tab) 40 mg PO DAILY [facility] Last Admin: 09/07/18 09:40 Dose: 40 mg - Labs Labs: 09/07/18 06:16 09/07/18 06:16 PT 13.3 SECONDS (9.7-12.2) H 09/04/18 11:10 INR 1.2 09/04/18 11:10 APTT 32 SECONDS (21-34) 09/04/18 11:10 - Constitutional Appears: Well - Head Exam Head Exam: ATRAUMATIC, NORMAL INSPECTION, NORMOCEPHALIC - Eye Exam Eye Exam: EOMI, Normal appearance, PERRL Pupil Exam: NORMAL ACCOMODATION, PERRL - ENT Exam ENT Exam: Mucous Membranes Moist, Normal Exam - Neck Exam Neck Exam: Full ROM, Normal Inspection. absent: Lymphadenopathy - Respiratory Exam Respiratory Exam: Decreased Breath Sounds - Cardiovascular Exam Cardiovascular Exam: REGULAR RHYTHM, +S1, +S2 - GI/Abdominal Exam GI & Abdominal Exam: Soft, Diminished Bowel Sounds - Rectal Exam Rectal Exam: Deferred
[2018-09-08] MEDS: Vancomycin 1 gm/NS 200 ml 1 GM/200 ML BAG IVPB SCH ×3 (04:12→21:47)
[2018-09-08] MEDS: (Novolog) Insulin Aspart, Recombinant 100 u/ml 10 ml vial SC SCH ×4 (07:19→21:24)
[2018-09-08] MEDS: Pantoprazole 40 mg EC Tab PO SCH (09:46)
[2018-09-08 11:29] LABS: BASO % 0.9 % (0.0-2.0); EOS % 1.5 % (0.0-4.0); HEMOGLOBIN 12.6 g/dL (12.0-18.0); LYMPH # 0.7 K/uL (1.0-4.3); LYMPH % 19.8 % (20.0-40.0); MEAN CORPUSCULAR HEMOGLOBIN 31.5 pg (27.0-31.0); MEAN CORPUSCULAR HGB CONC 33.5 g/dL (33.0-37.0); MEAN PLATELET VOLUME 7.4 fL (7.2-11.7); MONO # 0.2 K/uL (0.0-0.8); MONO % 4.8 % (0.0-10.0); NEUT # 2.4 K/uL (1.8-7.0); RBC 4.01 Mil/uL (4.40-5.90); RED CELL DISTRIBUTION WIDTH 14.7 % (11.5-14.5); WHITE BLOOD COUNT 3.3 K/uL (4.8-10.8)
[2018-09-08 11:49] LABS: ALB/GLOB RATIO 1.1 (1.0-2.1); ALBUMIN 3.8 g/dL (3.5-5.0); ALT/SGPT 50 U/L (21-72); AST/SGOT 52 U/L (17-59); BLOOD UREA NITROGEN 13 mg/dL (9-20); CALCIUM 8.9 mg/dl (8.6-10.4); GFR NON-AFRICAN AMERICAN > 60
--- NOTE | 2018-09-08 14:19 | CP.PCM.PN ---
Subjective - Date & Time of Evaluation Date of Evaluation: 09/08/18 Time of Evaluation: 09:00 - Subjective Subjective: clinically same Objective - Vital Signs/Intake and Output Vital Signs (last 24 hours): Temp Pulse Resp BP Pulse Ox 97.9 F 79 20 136/83 95 09/08/18 07:58 09/08/18 07:58 09/08/18 07:58 09/08/18 07:58 09/08/18 07:58 Intake and Output: 09/08/18 09/08/18 06:59 18:59 Intake Total 1290 1250 Output Total 1 Balance 1289 1250 - Medications Medications: Current Medications Albuterol (Ventolin Hfa 90 Mcg/Actuation (8 G)) 2 puff IH RQ6 PRN PRN Reason: Shortness of Breath Vancomycin/Sodium Chloride (Vancomycin 1 Gm/Ns 200 Ml) 1 gm in 200 mls @ 133 mls/hr IVPB Q8H [facility]; Protocol Stop: 09/12/18 21:01 Last Admin: 09/08/18 13:16 Dose: 133 mls/hr Insulin Aspart (Novolog) 0 unit SC ACHS [facility]; Protocol Last Admin: 09/08/18 12:27 Dose: 3 unit Morphine Sulfate (Morphine) 2 mg IVP Q6H PRN PRN Reason: Pain, severe (8-10) Last Admin: 09/08/18 13:17 Dose: 2 mg Pantoprazole Sodium (Protonix Ec Tab) 40 mg PO DAILY [facility] Last Admin: 09/08/18 09:46 Dose: 40 mg - Labs Labs: 09/08/18 11:18 09/08/18 11:18 PT 13.3 SECONDS (9.7-12.2) H 09/04/18 11:10 INR 1.2 09/04/18 11:10 APTT 32 SECONDS (21-34) 09/04/18 11:10 - Constitutional Appears: Well - Head Exam Head Exam: ATRAUMATIC, NORMAL INSPECTION, NORMOCEPHALIC - Eye Exam Eye Exam: EOMI, Normal appearance, PERRL Pupil Exam: NORMAL ACCOMODATION, PERRL - ENT Exam ENT Exam: Mucous Membranes Moist, Normal Exam - Neck Exam Neck Exam: Full ROM, Normal Inspection. absent: Lymphadenopathy - Respiratory Exam Respiratory Exam: Decreased Breath Sounds - Cardiovascular Exam Cardiovascular Exam: REGULAR RHYTHM, +S1, +S2 - GI/Abdominal Exam GI & Abdominal Exam: Soft, Diminished Bowel Sounds - Rectal Exam Rectal Exam: Deferred
[2018-09-09] MEDS: Vancomycin 1 gm/NS 200 ml 1 GM/200 ML BAG IVPB SCH ×2 (07:29→14:03)
[2018-09-09] MEDS: (Novolog) Insulin Aspart, Recombinant 100 u/ml 10 ml vial SC SCH ×4 (09:25→21:28)
[2018-09-09] MEDS: Pantoprazole 40 mg EC Tab PO SCH (09:25)
--- NOTE | 2018-09-09 15:22 | CP.PCM.PN ---
Subjective - Date & Time of Evaluation Date of Evaluation: 09/09/18 Time of Evaluation: 09:00 - Subjective Subjective: clinically same Objective - Vital Signs/Intake and Output Vital Signs (last 24 hours): Temp Pulse Resp BP Pulse Ox 97.4 F L 76 20 165/70 H 95 09/09/18 08:00 09/09/18 08:00 09/09/18 08:00 09/09/18 08:00 09/09/18 08:00 - Medications Medications: Current Medications Albuterol (Ventolin Hfa 90 Mcg/Actuation (8 G)) 2 puff IH RQ6 PRN PRN Reason: Shortness of Breath Hydrochlorothiazide (Hydrodiuril) 25 mg PO DAILY [facility] Last Admin: 09/09/18 14:04 Dose: 25 mg Vancomycin/Sodium Chloride (Vancomycin 1 Gm/Ns 200 Ml) 1 gm in 200 mls @ 133 mls/hr IVPB Q8H [facility]; Protocol Stop: 09/12/18 21:01 Last Admin: 09/09/18 14:03 Dose: 133 mls/hr Insulin Aspart (Novolog) 0 unit SC ACHS [facility]; Protocol Last Admin: 09/09/18 12:25 Dose: 2 unit Morphine Sulfate (Morphine) 2 mg IVP Q6H PRN PRN Reason: Pain, severe (8-10) Last Admin: 09/09/18 14:04 Dose: 2 mg Pantoprazole Sodium (Protonix Ec Tab) 40 mg PO DAILY [facility] Last Admin: 09/09/18 09:25 Dose: 40 mg - Labs Labs: 09/08/18 11:18 09/08/18 11:18 PT 13.3 SECONDS (9.7-12.2) H 09/04/18 11:10 INR 1.2 09/04/18 11:10 APTT 32 SECONDS (21-34) 09/04/18 11:10 - Constitutional Appears: Well - Head Exam Head Exam: ATRAUMATIC, NORMAL INSPECTION, NORMOCEPHALIC - Eye Exam Eye Exam: EOMI, Normal appearance, PERRL Pupil Exam: NORMAL ACCOMODATION, PERRL - ENT Exam ENT Exam: Mucous Membranes Moist, Normal Exam - Neck Exam Neck Exam: Full ROM, Normal Inspection. absent: Lymphadenopathy - Respiratory Exam Respiratory Exam: Decreased Breath Sounds - Cardiovascular Exam Cardiovascular Exam: REGULAR RHYTHM, +S1, +S2 - GI/Abdominal Exam GI & Abdominal Exam: Soft, Diminished Bowel Sounds - Rectal Exam Rectal Exam: Deferred
--- NOTE | 2018-09-09 17:32 | CP.PCM.PN ---
Subjective - Date & Time of Evaluation Date of Evaluation: 09/09/18 Time of Evaluation: 08:00 - Subjective Subjective: appears comfortable in NAD Objective - Vital Signs/Intake and Output Vital Signs (last 24 hours): Temp Pulse Resp BP Pulse Ox 98.2 F 74 20 132/78 94 L 09/09/18 17:24 09/09/18 17:24 09/09/18 17:24 09/09/18 17:24 09/09/18 17:24 Intake and Output: 09/09/18 09/09/18 06:59 18:59 Intake Total 1050 Balance 1050 - Medications Medications: Current Medications Albuterol (Ventolin Hfa 90 Mcg/Actuation (8 G)) 2 puff IH RQ6 PRN PRN Reason: Shortness of Breath Hydrochlorothiazide (Hydrodiuril) 25 mg PO DAILY [facility] Last Admin: 09/09/18 14:04 Dose: 25 mg Vancomycin/Sodium Chloride (Vancomycin 1 Gm/Ns 200 Ml) 1 gm in 200 mls @ 133 mls/hr IVPB Q8H [facility]; Protocol Stop: 09/12/18 21:01 Last Admin: 09/09/18 14:03 Dose: 133 mls/hr Insulin Aspart (Novolog) 0 unit SC ACHS [facility]; Protocol Last Admin: 09/09/18 12:25 Dose: 2 unit Morphine Sulfate (Morphine) 2 mg IVP Q6H PRN PRN Reason: Pain, severe (8-10) Last Admin: 09/09/18 14:04 Dose: 2 mg Pantoprazole Sodium (Protonix Ec Tab) 40 mg PO DAILY [facility] Last Admin: 09/09/18 09:25 Dose: 40 mg - Labs Labs: 09/08/18 11:18 09/08/18 11:18 PT 13.3 SECONDS (9.7-12.2) H 09/04/18 11:10 INR 1.2 09/04/18 11:10 APTT 32 SECONDS (21-34) 09/04/18 11:10 - Constitutional Appears: Confused, Cachectic, Chronically Ill - Head Exam Head Exam: NORMOCEPHALIC - Eye Exam Eye Exam: absent: Scleral icterus - ENT Exam ENT Exam: Mucous Membranes Dry - Neck Exam Neck Exam: absent: Lymphadenopathy - Respiratory Exam Respiratory Exam: Decreased Breath Sounds - Cardiovascular Exam Cardiovascular Exam: REGULAR RHYTHM - GI/Abdominal Exam GI & Abdominal Exam: Distended, Soft - Rectal Exam Rectal Exam: Deferred - Exam Exam: NORMAL INSPECTION - Extremities Exam Extremities Exam: Pedal Edema Additional comments: left foot dressing C/D/I toes warm pulse + Assessment and Plan (1) Abscess of leg, right Status: Acute (2) Hyperglycemia Status: Acute (3) Lower extremity cellulitis Status: Acute - Assessment and Plan (Free Text) Assessment: cont iv rx for OM x 6 weeks
[2018-09-10] MEDS: (Novolog) Insulin Aspart, Recombinant 100 u/ml 10 ml vial SC SCH ×4 (08:48→21:15)
[2018-09-10] MEDS: Pantoprazole 40 mg EC Tab PO SCH (09:44)
--- NOTE | 2018-09-10 18:46 | CP.PCM.PN ---
Subjective - Date & Time of Evaluation Date of Evaluation: 09/10/18 Time of Evaluation: 09:00 - Subjective Subjective: clinically same Objective - Vital Signs/Intake and Output Vital Signs (last 24 hours): Temp Pulse Resp BP Pulse Ox 97.6 F 82 18 135/79 95 09/10/18 16:09 09/10/18 16:09 09/10/18 16:09 09/10/18 16:09 09/10/18 16:09 Intake and Output: 09/10/18 09/10/18 06:59 18:59 Intake Total 750 1050 Balance 750 1050 - Medications Medications: Current Medications Albuterol (Ventolin Hfa 90 Mcg/Actuation (8 G)) 2 puff IH RQ6 PRN PRN Reason: Shortness of Breath Hydrochlorothiazide (Hydrodiuril) 25 mg PO DAILY [facility] Last Admin: 09/10/18 09:45 Dose: 25 mg Vancomycin HCl 1,250 mg/ (Sodium Chloride) 250 mls @ 166.6 mls/hr IVPB Q12H [facility]; Protocol Last Admin: 09/10/18 13:42 Dose: 166.6 mls/hr Insulin Aspart (Novolog) 0 unit SC ACHS [facility]; Protocol Last Admin: 09/10/18 17:30 Dose: 3 unit Morphine Sulfate (Morphine) 2 mg IVP Q6H PRN PRN Reason: Pain, severe (8-10) Last Admin: 09/10/18 13:43 Dose: 2 mg Pantoprazole Sodium (Protonix Ec Tab) 40 mg PO DAILY [facility] Last Admin: 09/10/18 09:44 Dose: 40 mg - Labs Labs: 09/08/18 11:18 09/08/18 11:18 PT 13.3 SECONDS (9.7-12.2) H 09/04/18 11:10 INR 1.2 09/04/18 11:10 APTT 32 SECONDS (21-34) 09/04/18 11:10 - Constitutional Appears: Well - Head Exam Head Exam: ATRAUMATIC, NORMAL INSPECTION, NORMOCEPHALIC - Eye Exam Eye Exam: EOMI, Normal appearance, PERRL Pupil Exam: NORMAL ACCOMODATION, PERRL - ENT Exam ENT Exam: Mucous Membranes Moist, Normal Exam - Neck Exam Neck Exam: Full ROM, Normal Inspection. absent: Lymphadenopathy - Respiratory Exam Respiratory Exam: Decreased Breath Sounds - Cardiovascular Exam Cardiovascular Exam: REGULAR RHYTHM, +S1, +S2 - GI/Abdominal Exam GI & Abdominal Exam: Soft, Diminished Bowel Sounds - Rectal Exam Rectal Exam: Deferred
[2018-09-11] MEDS: Pantoprazole 40 mg EC Tab PO SCH (09:13)
[2018-09-11] MEDS: (Novolog) Insulin Aspart, Recombinant 100 u/ml 10 ml vial SC SCH ×4 (09:13→22:29)
--- NOTE | 2018-09-11 14:38 | CP.PCM.PN ---
Subjective - Date & Time of Evaluation Date of Evaluation: 09/11/18 Time of Evaluation: 09:00 - Subjective Subjective: clinically same Objective - Vital Signs/Intake and Output Vital Signs (last 24 hours): Temp Pulse Resp BP Pulse Ox 98.2 F 83 20 141/80 93 L 09/11/18 09:00 09/11/18 09:00 09/11/18 09:00 09/11/18 09:00 09/11/18 09:00 Intake and Output: 09/11/18 09/11/18 06:59 18:59 Intake Total 900 1050 Balance 900 1050 - Medications Medications: Current Medications Albuterol (Ventolin Hfa 90 Mcg/Actuation (8 G)) 2 puff IH RQ6 PRN PRN Reason: Shortness of Breath Hydrochlorothiazide (Hydrodiuril) 25 mg PO DAILY [facility] Last Admin: 09/11/18 09:13 Dose: 25 mg Vancomycin HCl 1,250 mg/ (Sodium Chloride) 250 mls @ 166.6 mls/hr IVPB Q12H [facility]; Protocol Last Admin: 09/11/18 13:42 Dose: 166.6 mls/hr Insulin Aspart (Novolog) 0 unit SC ACHS [facility]; Protocol Last Admin: 09/11/18 13:16 Dose: 4 unit Morphine Sulfate (Morphine) 2 mg IVP Q6H PRN PRN Reason: Pain, severe (8-10) Last Admin: 09/11/18 13:42 Dose: 2 mg Pantoprazole Sodium (Protonix Ec Tab) 40 mg PO DAILY [facility] Last Admin: 09/11/18 09:13 Dose: 40 mg - Labs Labs: 09/08/18 11:18 09/08/18 11:18 PT 13.3 SECONDS (9.7-12.2) H 09/04/18 11:10 INR 1.2 09/04/18 11:10 APTT 32 SECONDS (21-34) 09/04/18 11:10 - Constitutional Appears: Well - Head Exam Head Exam: ATRAUMATIC, NORMAL INSPECTION, NORMOCEPHALIC - Eye Exam Eye Exam: EOMI, Normal appearance, PERRL Pupil Exam: NORMAL ACCOMODATION, PERRL - ENT Exam ENT Exam: Mucous Membranes Moist, Normal Exam - Neck Exam Neck Exam: Full ROM, Normal Inspection. absent: Lymphadenopathy - Respiratory Exam Respiratory Exam: Decreased Breath Sounds - Cardiovascular Exam Cardiovascular Exam: REGULAR RHYTHM, +S1, +S2 - GI/Abdominal Exam GI & Abdominal Exam: Soft, Diminished Bowel Sounds - Rectal Exam Rectal Exam: Deferred
--- NOTE | 2018-09-12 07:08 | CP.PCM.PN ---
Subjective - Date & Time of Evaluation Date of Evaluation: 09/12/18 Time of Evaluation: 07:04 - Subjective Subjective: 47 year old female with a past medical history of hypertension, asthma, hyperlipidemia, depression, psoriasis, and cellulitis who presents to the hospital reporting right leg swelling and erythema for the past couple of days. Patient desribes the pain as throbbing in nature with no radiation elsewhere. Patient denies taking anything at home for the leg pain. Patient denies any chest pain, fevers, chills, nausea, vomiting, abdominal pain, syncopal episodes, or any other complaints. Medical history: hypertnesion, asthma, hyperlipidemia, depression, psoriasis, cellulitis Surgical history: Denies Hospitalization: Bilateral cellulitis [place]iges: Denies Medications: Ibuprofen Family History: Mother (Hypertension) Social history: 25 yr ppd, Smokes marijuana, Occasionally dry alcohol Objective - Vital Signs/Intake and Output Vital Signs (last 24 hours): Temp Pulse Resp BP Pulse Ox 98 F 79 20 147/73 96 09/11/18 23:30 09/11/18 23:30 09/11/18 23:30 09/11/18 23:30 09/11/18 23:30 Intake and Output: 09/12/18 09/12/18 06:59 18:59 Intake Total 230 Balance 230 - Medications Medications: Current Medications Albuterol (Ventolin Hfa 90 Mcg/Actuation (8 G)) 2 puff IH RQ6 PRN PRN Reason: Shortness of Breath Hydrochlorothiazide (Hydrodiuril) 25 mg PO DAILY [facility] Last Admin: 09/11/18 09:13 Dose: 25 mg Vancomycin HCl 1,250 mg/ (Sodium Chloride) 250 mls @ 166.6 mls/hr IVPB Q12H [facility]; Protocol Last Admin: 09/12/18 01:58 Dose: 166.6 mls/hr Insulin Aspart (Novolog) 0 unit SC ACHS [facility]; Protocol Last Admin: 09/11/18 22:29 Dose: Not Given Morphine Sulfate (Morphine) 2 mg IVP Q6H PRN PRN Reason: Pain, severe (8-10) Last Admin: 09/12/18 02:11 Dose: 2 mg Pantoprazole Sodium (Protonix Ec Tab) 40 mg PO DAILY [facility] Last Admin: 09/11/18 09:13 Dose: 40 mg - Labs Labs: 09/08/18 11:18 09/08/18 11:18 PT 13.3 SECONDS (9.7-12.2) H 09/04/18 11:10 INR 1.2 09/04/18 11:10 APTT 32 SECONDS (21-34) 09/04/18 11:10 - Head Exam Head Exam: ATRAUMATIC, NORMAL INSPECTION - Eye Exam Eye Exam: EOMI, Normal appearance, PERRL Pupil Exam: NORMAL ACCOMODATION - ENT Exam ENT Exam: Mucous Membranes Moist, Normal Oropharynx - Respiratory Exam Respiratory Exam: Clear to Ausculation Bilateral, NORMAL BREATHING PATTERN. absent: Prolonged Expiratory Phase - Cardiovascular Exam Cardiovascular Exam: REGULAR RHYTHM, +S1, +S2 - GI/Abdominal Exam GI & Abdominal Exam: Soft, Normal Bowel Sounds. absent: Hyperactive Bowel Sounds - Neurological Exam Neurological Exam: Alert, Awake, CN II-XII Intact, Oriented x3 - Psychiatric Exam Psychiatric exam: Normal Affect, Normal Mood. absent: Depressed - Skin Additional comments: Venous stasis changes bilaterally Poor healing ulcer right lateral calf Assessment and Plan - Assessment and Plan (Free Text) Assessment: 47 year old female with a past medical history of hypertension, asthma, hyperlipidemia, depression, psoriasis, and cellulitis who presents to the hospital reporting right leg swelling and erythema for the past couple of days. Plan: 1.Right leg cellulitis Foot xray:Large soft tissue defect in the heel corresponding to known ulcer. Sclerosis in the posterior calcaneus could be reactive however underlying osteomyelitis cannot be entirely excluded. If clinically indicated, correlation with MRI without and with intravenous contrast may be performed. Tibia/Fibula xray: No acute fracture or bone destruction. No radiographic evidence for osteomyelitis. CT right lower extremity: At the site of the external marker, there is a 1.8 centimeter defect/ulcer within the lateral soft tissues at the level of the mid tibia and fibula. At that level, there is some confluent organizing reticulation and edema measuring up to 1.8 x 1.3 centimeters suggestive for some developing phlegmonous changes b ut without evidence of discrete abscess collection. There is extension to the adjacent lateral sided musculature. Prominent varicosities seen within medial subcutaneous soft tissues. Diffuse circumferential reticulation and edema within the soft tissues suggestive for a cellulitis. Continued interval follow-up with MRI may be helpful if clinically indicated. Surgery Dr. Carey consulted--> Help appreciated -Patient initially scheduled for debridement with Dr. Carey but denied the procedure. At bedside today patient was open to having the procedure done. -Patient agreeable to surgery today. Patient also reports being agreeable to intubation with sedation at bedside.Will f/u with Surgery to schedule day. Medications: Vancomycin 1250mg IVPB Q12 [facility] Morphine 2mg IVP Q6 prn 2. Hx of hypertension -Continue Hydrochlorothiazide 25mg PO DAILY [facility] 3.hx of Diabetes -ISS -Hypoglycemic protocol -Moderate carbohydrate consistent diet 4.hx of Asthma -Albuterol 2 puff IH RQ6 PRN PPX -Protonix -Anticoagulation Dispo: F/u with surgery to schedule debridement. All management per Dr. Ochoa. Javier Antonio, PGY-2
[2018-09-12] MEDS: (Novolog) Insulin Aspart, Recombinant 100 u/ml 10 ml vial SC SCH ×4 (08:29→21:13)
[2018-09-12] MEDS: Pantoprazole 40 mg EC Tab PO SCH (09:31)
--- NOTE | 2018-09-12 16:23 | CP.PCM.PN ---
Subjective - Date & Time of Evaluation Date of Evaluation: 09/12/18 Time of Evaluation: 08:00 - Subjective Subjective: swelling/ drainage less no fever Objective - Vital Signs/Intake and Output Vital Signs (last 24 hours): Temp Pulse Resp BP Pulse Ox 97.4 F L 88 20 139/84 95 09/12/18 15:29 09/12/18 15:29 09/12/18 15:29 09/12/18 15:29 09/12/18 15:29 Intake and Output: 09/12/18 09/12/18 06:59 18:59 Intake Total 230 Balance 230 - Medications Medications: Current Medications Albuterol (Ventolin Hfa 90 Mcg/Actuation (8 G)) 2 puff IH RQ6 PRN PRN Reason: Shortness of Breath Hydrochlorothiazide (Hydrodiuril) 25 mg PO DAILY [facility] Last Admin: 09/12/18 09:31 Dose: 25 mg Vancomycin HCl 1,250 mg/ (Sodium Chloride) 250 mls @ 166.6 mls/hr IVPB Q12H [facility]; Protocol Last Admin: 09/12/18 13:53 Dose: 166.6 mls/hr Insulin Aspart (Novolog) 0 unit SC ACHS [facility]; Protocol Last Admin: 09/12/18 12:30 Dose: 3 unit Morphine Sulfate (Morphine) 2 mg IVP Q6H PRN PRN Reason: Pain, severe (8-10) Last Admin: 09/12/18 15:02 Dose: 2 mg Pantoprazole Sodium (Protonix Ec Tab) 40 mg PO DAILY [facility] Last Admin: 09/12/18 09:31 Dose: 40 mg - Labs Labs: 09/08/18 11:18 09/08/18 11:18 PT 13.3 SECONDS (9.7-12.2) H 09/04/18 11:10 INR 1.2 09/04/18 11:10 APTT 32 SECONDS (21-34) 09/04/18 11:10 - Constitutional Appears: No Acute Distress, Chronically Ill - Head Exam Head Exam: ATRAUMATIC, NORMAL INSPECTION, NORMOCEPHALIC - Eye Exam Eye Exam: EOMI, Normal appearance, PERRL Pupil Exam: NORMAL ACCOMODATION, PERRL - ENT Exam ENT Exam: Mucous Membranes Moist, Normal Exam - Neck Exam Neck Exam: Full ROM, Normal Inspection. absent: Lymphadenopathy - Respiratory Exam Respiratory Exam: Clear to Ausculation Bilateral, NORMAL BREATHING PATTERN - Cardiovascular Exam Cardiovascular Exam: REGULAR RHYTHM, +S1, +S2. absent: Murmur - GI/Abdominal Exam GI & Abdominal Exam: Soft, Normal Bowel Sounds. absent: Tenderness - Rectal Exam Rectal Exam: Deferred - Exam Exam: NORMAL INSPECTION - Extremities Exam Extremities Exam: Full ROM, Normal Capillary Refill, Normal Inspection. absent: Joint Swelling, Pedal Edema - Back Exam Back Exam: NORMAL INSPECTION - Neurological Exam Neurological Exam: Alert, Awake, CN II-XII Intact, Normal Gait, Oriented x3 - Psychiatric Exam Psychiatric exam: Normal Affect, Normal Mood - Skin Skin Exam: Dry, Intact, Normal Color Assessment and Plan (1) Abscess of leg, right Status: Acute (2) Hyperglycemia Status: Acute (3) Lower extremity cellulitis Status: Acute - Assessment and Plan (Free Text) Assessment: cont iv rx and wound care
--- NOTE | 2018-09-12 19:34 | CP.PCM.PN ---
Subjective - Date & Time of Evaluation Date of Evaluation: 09/12/18 Time of Evaluation: 09:30 - Subjective Subjective: clinically same Objective - Vital Signs/Intake and Output Vital Signs (last 24 hours): Temp Pulse Resp BP Pulse Ox 97.4 F L 88 20 139/84 95 09/12/18 15:29 09/12/18 15:29 09/12/18 15:29 09/12/18 15:29 09/12/18 15:29 - Medications Medications: Current Medications Albuterol (Ventolin Hfa 90 Mcg/Actuation (8 G)) 2 puff IH RQ6 PRN PRN Reason: Shortness of Breath Hydrochlorothiazide (Hydrodiuril) 25 mg PO DAILY [facility] Last Admin: 09/12/18 09:31 Dose: 25 mg Vancomycin HCl 1,250 mg/ (Sodium Chloride) 250 mls @ 166.6 mls/hr IVPB Q12H [facility]; Protocol Last Admin: 09/12/18 13:53 Dose: 166.6 mls/hr Insulin Aspart (Novolog) 0 unit SC ACHS [facility]; Protocol Last Admin: 09/12/18 17:44 Dose: 3 unit Morphine Sulfate (Morphine) 2 mg IVP Q6H PRN PRN Reason: Pain, severe (8-10) Last Admin: 09/12/18 15:02 Dose: 2 mg Pantoprazole Sodium (Protonix Ec Tab) 40 mg PO DAILY [facility] Last Admin: 09/12/18 09:31 Dose: 40 mg - Labs Labs: 09/08/18 11:18 09/08/18 11:18 PT 13.3 SECONDS (9.7-12.2) H 09/04/18 11:10 INR 1.2 09/04/18 11:10 APTT 32 SECONDS (21-34) 09/04/18 11:10 - Constitutional Appears: Well - Head Exam Head Exam: ATRAUMATIC, NORMAL INSPECTION, NORMOCEPHALIC - Eye Exam Eye Exam: EOMI, Normal appearance, PERRL Pupil Exam: NORMAL ACCOMODATION, PERRL - ENT Exam ENT Exam: Mucous Membranes Moist, Normal Exam - Neck Exam Neck Exam: Full ROM, Normal Inspection. absent: Lymphadenopathy - Respiratory Exam Respiratory Exam: Decreased Breath Sounds - Cardiovascular Exam Cardiovascular Exam: REGULAR RHYTHM, +S1, +S2 - GI/Abdominal Exam GI & Abdominal Exam: Soft, Diminished Bowel Sounds - Rectal Exam Rectal Exam: Deferred
[2018-09-13] MEDS: (Novolog) Insulin Aspart, Recombinant 100 u/ml 10 ml vial SC SCH ×4 (07:34→21:06)
[2018-09-13 08:44] LABS: BASO % 0.6 % (0.0-2.0); EOS # 0.1 K/uL (0.0-0.7); EOS % 1.4 % (0.0-4.0); HEMOGLOBIN 13.1 g/dL (12.0-18.0); LYMPH # 1.1 K/uL (1.0-4.3); LYMPH % 25.7 % (20.0-40.0); MEAN CELL VOLUME 93.8 fL (80.0-94.0); MEAN CORPUSCULAR HEMOGLOBIN 30.7 pg (27.0-31.0); MEAN CORPUSCULAR HGB CONC 32.8 g/dL (33.0-37.0); MEAN PLATELET VOLUME 7.3 fL (7.2-11.7); MONO # 0.3 K/uL (0.0-0.8); MONO % 6.1 % (0.0-10.0); NEUT # 2.9 K/uL (1.8-7.0); NEUT % 66.2 % (50.0-75.0); NRBC % 0.1 % (0.0-2.0); RBC 4.27 Mil/uL (4.40-5.90); RED CELL DISTRIBUTION WIDTH 14.7 % (11.5-14.5); WHITE BLOOD COUNT 4.4 K/uL (4.8-10.8)
[2018-09-13 08:58] LABS: ALB/GLOB RATIO 1.1 (1.0-2.1); ALT/SGPT 57 U/L (21-72); AST/SGOT 56 U/L (17-59); BLOOD UREA NITROGEN 20 mg/dL (9-20); CALCIUM 8.8 mg/dl (8.6-10.4); GFR NON-AFRICAN AMERICAN > 60
[2018-09-13] MEDS: Pantoprazole 40 mg EC Tab PO SCH (09:09)
--- NOTE | 2018-09-13 13:14 | CP.PCM.PN ---
"Subjective - Date & Time of Evaluation Date of Evaluation: 09/13/18 Time of Evaluation: 13:12 - Subjective Subjective: Patient seen and examined at bedside. No overnight events reported. He only complains of right lower extremity pain. He denies any fever, chills, chest pain, SOB, abdominal pain, n/v changes in bowel habits, or urinary symptoms. Objective - Vital Signs/Intake and Output Vital Signs (last 24 hours): Temp Pulse Resp BP Pulse Ox 97.3 F L 92 H 18 125/84 96 09/13/18 07:25 09/13/18 07:25 09/13/18 07:25 09/13/18 07:25 09/13/18 07:25 Intake and Output: 09/13/18 09/13/18 06:59 18:59 Intake Total 370 Balance 370 - Medications Medications: Current Medications Albuterol (Ventolin Hfa 90 Mcg/Actuation (8 G)) 2 puff IH RQ6 PRN PRN Reason: Shortness of Breath Hydrochlorothiazide (Hydrodiuril) 25 mg PO DAILY [facility] Last Admin: 09/13/18 09:10 Dose: 25 mg Vancomycin HCl 1,250 mg/ (Sodium Chloride) 250 mls @ 166.6 mls/hr IVPB Q12H [facility]; Protocol Last Admin: 09/13/18 02:22 Dose: 166.6 mls/hr Insulin Aspart (Novolog) 0 unit SC ACHS [facility]; Protocol Last Admin: 09/13/18 07:34 Dose: Not Given Morphine Sulfate (Morphine) 2 mg IVP Q6H PRN PRN Reason: Pain, severe (8-10) Last Admin: 09/13/18 09:10 Dose: 2 mg Pantoprazole Sodium (Protonix Ec Tab) 40 mg PO DAILY [facility] Last Admin: 09/13/18 09:09 Dose: 40 mg - Labs Labs: 09/13/18 08:29 09/13/18 08:29 PT 13.3 SECONDS (9.7-12.2) H 09/04/18 11:10 INR 1.2 09/04/18 11:10 APTT 32 SECONDS (21-34) 09/04/18 11:10 - Constitutional Appears: Well, Non-toxic, No Acute Distress - Head Exam Head Exam: ATRAUMATIC, NORMAL INSPECTION, NORMOCEPHALIC - Eye Exam Eye Exam: Normal appearance - ENT Exam ENT Exam: Mucous Membranes Moist - Respiratory Exam Respiratory Exam: Clear to Ausculation Bilateral. absent: Accessory Muscle Use - Cardiovascular Exam Cardiovascular Exam: RRR, +S1, +S2 - GI/Abdominal Exam GI & Abdominal Exam: Soft, Normal Bowel Sounds. absent: Tenderness - Neurological Exam Neurological Exam: Alert, Awake, Oriented x3 - Psychiatric Exam Psychiatric exam: Normal Affect, Normal Mood - Skin Additional comments: b/l LE with venous stasis. RLE with 2x2cm wound on the lateral leg with surrounding erythema, mildly draining. Assessment and Plan - Assessment and Plan (Free Text) Assessment: 47 year old female with a past medical history of hypertension, asthma, hyperlipidemia, depression, psoriasis, and cellulitis who admitted for evaluation and treatment of b/l lower extremity cellulitis and right lower extremity non-healing ulcer. Plan: Right Lower Extremity Cellulitis with Ulceration. Foot xray (09/04/18): Large soft tissue defect in the heel corresponding to known ulcer. Sclerosis in the posterior calcaneus could be reactive however underlying osteomyelitis cannot be entirely excluded. If clinically indicated, correlation with MRI without and with intravenous contrast may be performed. Tibia/Fibula xray (09/04/18): No acute fracture or bone destruction. No radiographic evidence for osteomyelitis. CT right lower extremity (09/04/18): At the site of the external marker, there is a 1.8 centimeter defect/ulcer within the lateral soft tissues at the level of the mid tibia and fibula. At that level, there is some confluent organizing reticulation and edema measuring up to 1.8 x 1.3 centimeters suggestive for some developing phlegmonous changes but without evidence of discrete abscess collection. There is extension to the adjacent lateral sided musculature. Prominent varicosities seen within medial subcutaneous soft tissues. Diffuse circumferential reticulation and edema within the soft tissues suggestive for a cellulitis. Continued interval follow-up with MRI may be helpful if clinically indicated. Consults: General Surgery (Dr. Torres) | Will consider podiatry consult. -PICC LINE Ordered -Continue Wound Care Medications: Vancomycin 1250mg IVPB Q12 [facility] (To be stopped on September 30) Morphine 2mg IVP Q6 prn HTN -Continue Hydrochlorothiazide 25mg PO DAILY [facility] Diabetes -ISS -Hypoglycemic protocol -Moderate carbohydrate consistent diet Asthma -Albuterol 2 puff IH RQ6 PRN Proph -Protonix -Anticoagulation Dispo: PENDING [facility] placement. PICC line ordered. Patient be on IV antibiotics f or 2-3 weeks (Stop date September 23-September 30) All management per Dr. Ochoa. Dodie Queen, PGY-2"
--- NOTE | 2018-09-13 17:46 | CP.PCM.PN ---
Subjective - Date & Time of Evaluation Date of Evaluation: 09/13/18 Time of Evaluation: 09:45 - Subjective Subjective: clinically same Objective - Vital Signs/Intake and Output Vital Signs (last 24 hours): Temp Pulse Resp BP Pulse Ox 97.6 F 75 20 126/79 95 09/13/18 16:17 09/13/18 16:17 09/13/18 16:17 09/13/18 16:17 09/13/18 16:17 Intake and Output: 09/13/18 09/13/18 06:59 18:59 Intake Total 370 1050 Balance 370 1050 - Medications Medications: Current Medications Albuterol (Ventolin Hfa 90 Mcg/Actuation (8 G)) 2 puff IH RQ6 PRN PRN Reason: Shortness of Breath Hydrochlorothiazide (Hydrodiuril) 25 mg PO DAILY [facility] Last Admin: 09/13/18 09:10 Dose: 25 mg Vancomycin HCl 1,250 mg/ (Sodium Chloride) 250 mls @ 166.6 mls/hr IVPB Q12H [facility]; Protocol Last Admin: 09/13/18 13:17 Dose: 166.6 mls/hr Insulin Aspart (Novolog) 0 unit SC ACHS [facility]; Protocol Last Admin: 09/13/18 17:39 Dose: 3 unit Morphine Sulfate (Morphine) 2 mg IVP Q6H PRN PRN Reason: Pain, severe (8-10) Last Admin: 09/13/18 16:39 Dose: 2 mg Pantoprazole Sodium (Protonix Ec Tab) 40 mg PO DAILY [facility] Last Admin: 09/13/18 09:09 Dose: 40 mg - Labs Labs: 09/13/18 08:29 09/13/18 08:29 PT 13.3 SECONDS (9.7-12.2) H 09/04/18 11:10 INR 1.2 09/04/18 11:10 APTT 32 SECONDS (21-34) 09/04/18 11:10 - Constitutional Appears: Well - Head Exam Head Exam: ATRAUMATIC, NORMAL INSPECTION, NORMOCEPHALIC - Eye Exam Eye Exam: EOMI, Normal appearance, PERRL Pupil Exam: NORMAL ACCOMODATION, PERRL - ENT Exam ENT Exam: Mucous Membranes Moist, Normal Exam - Neck Exam Neck Exam: Full ROM, Normal Inspection. absent: Lymphadenopathy - Respiratory Exam Respiratory Exam: Decreased Breath Sounds - Cardiovascular Exam Cardiovascular Exam: REGULAR RHYTHM, +S1, +S2 - GI/Abdominal Exam GI & Abdominal Exam: Soft, Diminished Bowel Sounds - Rectal Exam Rectal Exam: Deferred
--- NOTE | 2018-09-13 19:45 | CP.PCM.PN ---
Subjective - Date & Time of Evaluation Date of Evaluation: 09/13/18 Time of Evaluation: 08:00 - Subjective Subjective: afeb wound healing nad Objective - Vital Signs/Intake and Output Vital Signs (last 24 hours): Temp Pulse Resp BP Pulse Ox 97.6 F 75 20 126/79 95 09/13/18 16:17 09/13/18 16:17 09/13/18 16:17 09/13/18 16:17 09/13/18 16:17 Intake and Output: 09/13/18 09/14/18 18:59 06:59 Intake Total 1050 Balance 1050 - Medications Medications: Current Medications Albuterol (Ventolin Hfa 90 Mcg/Actuation (8 G)) 2 puff IH RQ6 PRN PRN Reason: Shortness of Breath Hydrochlorothiazide (Hydrodiuril) 25 mg PO DAILY [facility] Last Admin: 09/13/18 09:10 Dose: 25 mg Vancomycin HCl 1,250 mg/ (Sodium Chloride) 250 mls @ 166.6 mls/hr IVPB Q12H [facility]; Protocol Last Admin: 09/13/18 13:17 Dose: 166.6 mls/hr Insulin Aspart (Novolog) 0 unit SC ACHS [facility]; Protocol Last Admin: 09/13/18 17:39 Dose: 3 unit Morphine Sulfate (Morphine) 2 mg IVP Q4 PRN PRN Reason: Pain, severe (8-10) Pantoprazole Sodium (Protonix Ec Tab) 40 mg PO DAILY [facility] Last Admin: 09/13/18 09:09 Dose: 40 mg - Labs Labs: 09/13/18 08:29 09/13/18 08:29 PT 13.3 SECONDS (9.7-12.2) H 09/04/18 11:10 INR 1.2 09/04/18 11:10 APTT 32 SECONDS (21-34) 09/04/18 11:10 - Constitutional Appears: Well - Head Exam Head Exam: ATRAUMATIC, NORMAL INSPECTION, NORMOCEPHALIC - Eye Exam Eye Exam: EOMI, Normal appearance, PERRL Pupil Exam: NORMAL ACCOMODATION, PERRL - ENT Exam ENT Exam: Mucous Membranes Moist, Normal Exam - Neck Exam Neck Exam: Full ROM, Normal Inspection. absent: Lymphadenopathy - Respiratory Exam Respiratory Exam: Clear to Ausculation Bilateral, NORMAL BREATHING PATTERN - Cardiovascular Exam Cardiovascular Exam: REGULAR RHYTHM, +S1, +S2. absent: Murmur - GI/Abdominal Exam GI & Abdominal Exam: Soft, Normal Bowel Sounds. absent: Tenderness - Rectal Exam Rectal Exam: Deferred - Exam Exam: NORMAL INSPECTION - Extremities Exam Extremities Exam: Full ROM, Normal Capillary Refill, Normal Inspection. absent: Joint Swelling, Pedal Edema - Back Exam Back Exam: NORMAL INSPECTION - Neurological Exam Neurological Exam: Alert, Awake, CN II-XII Intact, Normal Gait, Oriented x3 - Psychiatric Exam Psychiatric exam: Normal Affect, Normal Mood - Skin Skin Exam: Dry, Intact, Normal Color, Warm Assessment and Plan (1) Abscess of leg, right Status: Acute (2) Hyperglycemia Status: Acute (3) Lower extremity cellulitis Status: Acute - Assessment and Plan (Free Text) Assessment: cont iv vanco and wound care
--- NOTE | 2018-09-14 07:53 | CP.PCM.PN ---
"Subjective - Date & Time of Evaluation Date of Evaluation: 09/14/18 Time of Evaluation: 07:53 - Subjective Subjective: Progress Note: Dr. Ochoa Service Patient seen and examined at bedside. Per nursing, no acute events occurred overnight. He only complains of right lower extremity pain. He denies any fever, chills, chest pain, SOB, abdominal pain, nausea, vomiting, changes in bowel habits, or urinary symptoms. Objective - Vital Signs/Intake and Output Vital Signs (last 24 hours): Temp Pulse Resp BP Pulse Ox 97.8 F 82 20 123/68 98 09/14/18 07:45 09/14/18 07:45 09/14/18 07:45 09/14/18 07:45 09/14/18 07:45 Intake and Output: 09/14/18 09/14/18 06:59 18:59 Intake Total 400 Balance 400 - Medications Medications: Current Medications Albuterol (Ventolin Hfa 90 Mcg/Actuation (8 G)) 2 puff IH RQ6 PRN PRN Reason: Shortness of Breath Hydrochlorothiazide (Hydrodiuril) 25 mg PO DAILY [facility] Last Admin: 09/13/18 09:10 Dose: 25 mg Vancomycin HCl 1,250 mg/ (Sodium Chloride) 250 mls @ 166.6 mls/hr IVPB Q12H [facility]; Protocol Last Admin: 09/14/18 02:05 Dose: 166.6 mls/hr Insulin Aspart (Novolog) 0 unit SC ACHS [facility]; Protocol Last Admin: 09/13/18 21:06 Dose: Not Given Morphine Sulfate (Morphine) 2 mg IVP Q4 PRN PRN Reason: Pain, severe (8-10) Last Admin: 09/14/18 04:39 Dose: 2 mg Pantoprazole Sodium (Protonix Ec Tab) 40 mg PO DAILY [facility] Last Admin: 09/13/18 09:09 Dose: 40 mg - Labs Labs: 09/13/18 08:29 09/13/18 08:29 PT 13.3 SECONDS (9.7-12.2) H 09/04/18 11:10 INR 1.2 09/04/18 11:10 APTT 32 SECONDS (21-34) 09/04/18 11:10 - Head Exam Head Exam: ATRAUMATIC, NORMAL INSPECTION - Eye Exam Eye Exam: EOMI, Normal appearance, PERRL Pupil Exam: NORMAL ACCOMODATION - ENT Exam ENT Exam: Mucous Membranes Moist, Normal Oropharynx - Respiratory Exam Respiratory Exam: Clear to Ausculation Bilateral, NORMAL BREATHING PATTERN. absent: Prolonged Expiratory Phase, Respiratory Distress - Cardiovascular Exam Cardiovascular Exam: REGULAR RHYTHM, +S1 - GI/Abdominal Exam GI & Abdominal Exam: Soft, Normal Bowel Sounds. absent: Hyperactive Bowel Sounds - Extremities Exam Extremities Exam: Normal Inspection. absent: Pedal Edema - Back Exam Back Exam: NORMAL INSPECTION. absent: CVA tenderness (R), paraspinal tenderness - Neurological Exam Neurological Exam: Alert, Awake, Oriented x3 - Psychiatric Exam Psychiatric exam: Normal Affect, Normal Mood. absent: Depressed - Skin Skin Exam: Dry, Intact Assessment and Plan - Assessment and Plan (Free Text) Assessment: 47 year old female with a past medical history of hypertension, asthma, hyperlipidemia, depression, psoriasis, and cellulitis who admitted for evaluation and treatment of b/l lower extremity cellulitis and right lower extremity non-healing ulcer. Plan: Right Lower Extremity Cellulitis with Ulceration. Foot xray (09/04/18): Large soft tissue defect in the heel corresponding to known ulcer. Sclerosis in the posterior calcaneus could be reactive however underlying osteomyelitis cannot be entirely excluded. If clinically indicated, correlation with MRI without and with intravenous contrast may be performed. Tibia/Fibula xray (09/04/18): No acute fracture or bone destruction. No radiographic evidence for osteomyelitis. CT right lower extremity (09/04/18): At the site of the external marker, there is a 1.8 centimeter defect/ulcer within the lateral soft tissues at the level of the mid tibia and fibula. At that level, there is some confluent organizing reticulation and edema measuring up to 1.8 x 1.3 centimeters suggestive for some developing phlegmonous changes but without evidence of discrete abscess collection. There is extension to the adjacent lateral sided musculature. Prominent varicosities seen within medial subcutaneous soft tissues. Diffuse circumferential reticulation and edema within the soft tissues suggestive for a cellulitis. Continued interval follow-up with MRI may be helpful if clinically indicated. Consults: General Surgery (Dr. Torres) | Will consider podiatry consult. -PICC LINE Ordered -Continue Wound Care Medications: Vancomycin 1250mg IVPB Q12 [facility] (To be stopped on September 30) Morphine 2mg IVP Q6 prn HTN -Continue Hydrochlorothiazide 25mg PO DAILY [facility] Diabetes -ISS -Hypoglycemic protocol -Moderate carbohydrate consistent diet Asthma -Albuterol 2 puff IH RQ6 PRN Proph -Protonix -Anticoagulation Dispo: PENDING [facility] placement at [facility]. PICC line ordered. Patient be on IV antibiotics for 2-3 weeks (Stop date September 23-September 30) All management per Dr. Daryn Antonio, PGY-2"
[2018-09-14] MEDS: (Novolog) Insulin Aspart, Recombinant 100 u/ml 10 ml vial SC SCH ×4 (08:30→22:00)
[2018-09-14] MEDS: Pantoprazole 40 mg EC Tab PO SCH (09:22)
--- NOTE | 2018-09-14 11:08 | RAD ---
Date of service: 09/14/2018 HISTORY: verify right PICC COMPARISON: 09/04/2018. FINDINGS: The right PICC line terminates in the right atrium. LUNGS: The lungs are well inflated and clear. PLEURA: No pleural effusions or pneumothorax. CARDIOVASCULAR: Mild cardiomegaly. No aortic atherosclerotic calcifications present. OSSEOUS STRUCTURES: Within normal limits for the patient's age. VISUALIZED UPPER ABDOMEN: Normal. OTHER FINDINGS: None. IMPRESSION: Right PICC line terminates in the right atrium. No acute findings.
--- NOTE | 2018-09-14 14:26 | RAD ---
Date of service: 09/14/2018 HISTORY: PICC adjusted COMPARISON: 09/14/2018 at 9:43 a.m.. FINDINGS: The right PICC line terminates in the SVC. LUNGS: The lungs are well inflated and clear. PLEURA: No pleural effusions or pneumothorax. CARDIOVASCULAR: There is severe cardiomegaly. No aortic atherosclerotic calcifications present. OSSEOUS STRUCTURES: Within normal limits for the patient's age. VISUALIZED UPPER ABDOMEN: Normal. OTHER FINDINGS: None. IMPRESSION: Right PICC line terminates in the SVC. No acute findings.
--- NOTE | 2018-09-14 19:00 | CP.PCM.PN ---
Subjective - Date & Time of Evaluation Date of Evaluation: 09/14/18 Time of Evaluation: 08:00 - Subjective Subjective: no fever or chills Objective - Vital Signs/Intake and Output Vital Signs (last 24 hours): Temp Pulse Resp BP Pulse Ox 97.7 F 85 20 127/82 94 L 09/14/18 15:00 09/14/18 15:00 09/14/18 15:00 09/14/18 15:00 09/14/18 15:00 Intake and Output: 09/14/18 09/14/18 06:59 18:59 Intake Total 400 Balance 400 - Medications Medications: Current Medications Albuterol (Ventolin Hfa 90 Mcg/Actuation (8 G)) 2 puff IH RQ6 PRN PRN Reason: Shortness of Breath Hydrochlorothiazide (Hydrodiuril) 25 mg PO DAILY [facility] Last Admin: 09/14/18 09:22 Dose: 25 mg Vancomycin HCl 1,250 mg/ (Sodium Chloride) 250 mls @ 166.6 mls/hr IVPB Q12H [facility]; Protocol Last Admin: 09/14/18 14:32 Dose: 166.6 mls/hr Insulin Aspart (Novolog) 0 unit SC ACHS [facility]; Protocol Last Admin: 09/14/18 16:53 Dose: 3 unit Morphine Sulfate (Morphine) 2 mg IVP Q4 PRN PRN Reason: Pain, severe (8-10) Last Admin: 09/14/18 17:58 Dose: 2 mg Pantoprazole Sodium (Protonix Ec Tab) 40 mg PO DAILY [facility] Last Admin: 09/14/18 09:22 Dose: 40 mg - Labs Labs: 09/13/18 08:29 09/13/18 08:29 PT 13.3 SECONDS (9.7-12.2) H 09/04/18 11:10 INR 1.2 09/04/18 11:10 APTT 32 SECONDS (21-34) 09/04/18 11:10 - Constitutional Appears: Well - Head Exam Head Exam: ATRAUMATIC, NORMAL INSPECTION, NORMOCEPHALIC - Eye Exam Eye Exam: EOMI, Normal appearance, PERRL Pupil Exam: NORMAL ACCOMODATION, PERRL - ENT Exam ENT Exam: Mucous Membranes Moist, Normal Exam - Neck Exam Neck Exam: Full ROM, Normal Inspection. absent: Lymphadenopathy - Respiratory Exam Respiratory Exam: Clear to Ausculation Bilateral, NORMAL BREATHING PATTERN - Cardiovascular Exam Cardiovascular Exam: REGULAR RHYTHM, +S1, +S2. absent: Murmur - GI/Abdominal Exam GI & Abdominal Exam: Soft, Normal Bowel Sounds. absent: Tenderness - Rectal Exam Rectal Exam: Deferred - Exam Exam: NORMAL INSPECTION - Extremities Exam Extremities Exam: Full ROM, Normal Capillary Refill, Normal Inspection. absent: Joint Swelling, Pedal Edema - Back Exam Back Exam: NORMAL INSPECTION - Neurological Exam Neurological Exam: Alert, Awake, CN II-XII Intact, Normal Gait, Oriented x3 - Psychiatric Exam Psychiatric exam: Normal Affect, Normal Mood - Skin Skin Exam: Dry, Intact, Normal Color, Warm Assessment and Plan (1) Abscess of leg, right Status: Acute (2) Hyperglycemia Status: Acute (3) Lower extremity cellulitis Status: Acute - Assessment and Plan (Free Text) Assessment: wound healing slowly cont rx
--- NOTE | 2018-09-14 19:39 | CP.PCM.PN ---
Subjective - Date & Time of Evaluation Date of Evaluation: 09/14/18 Time of Evaluation: 09:30 - Subjective Subjective: clinically same Objective - Vital Signs/Intake and Output Vital Signs (last 24 hours): Temp Pulse Resp BP Pulse Ox 97.7 F 85 20 127/82 94 L 09/14/18 15:00 09/14/18 15:00 09/14/18 15:00 09/14/18 15:00 09/14/18 15:00 - Medications Medications: Current Medications Albuterol (Ventolin Hfa 90 Mcg/Actuation (8 G)) 2 puff IH RQ6 PRN PRN Reason: Shortness of Breath Hydrochlorothiazide (Hydrodiuril) 25 mg PO DAILY [facility] Last Admin: 09/14/18 09:22 Dose: 25 mg Vancomycin HCl 1,250 mg/ (Sodium Chloride) 250 mls @ 166.6 mls/hr IVPB Q12H [facility]; Protocol Last Admin: 09/14/18 14:32 Dose: 166.6 mls/hr Insulin Aspart (Novolog) 0 unit SC ACHS [facility]; Protocol Last Admin: 09/14/18 16:53 Dose: 3 unit Morphine Sulfate (Morphine) 2 mg IVP Q4 PRN PRN Reason: Pain, severe (8-10) Last Admin: 09/14/18 17:58 Dose: 2 mg Pantoprazole Sodium (Protonix Ec Tab) 40 mg PO DAILY [facility] Last Admin: 09/14/18 09:22 Dose: 40 mg - Labs Labs: 09/13/18 08:29 09/13/18 08:29 PT 13.3 SECONDS (9.7-12.2) H 09/04/18 11:10 INR 1.2 09/04/18 11:10 APTT 32 SECONDS (21-34) 09/04/18 11:10 - Constitutional Appears: Well - Head Exam Head Exam: ATRAUMATIC, NORMAL INSPECTION, NORMOCEPHALIC - Eye Exam Eye Exam: EOMI, Normal appearance, PERRL Pupil Exam: NORMAL ACCOMODATION, PERRL - ENT Exam ENT Exam: Mucous Membranes Moist, Normal Exam - Neck Exam Neck Exam: Full ROM, Normal Inspection. absent: Lymphadenopathy - Respiratory Exam Respiratory Exam: Decreased Breath Sounds - Cardiovascular Exam Cardiovascular Exam: REGULAR RHYTHM, +S1, +S2 - GI/Abdominal Exam GI & Abdominal Exam: Soft, Diminished Bowel Sounds - Rectal Exam Rectal Exam: Deferred
[2018-09-15] MEDS: (Novolog) Insulin Aspart, Recombinant 100 u/ml 10 ml vial SC SCH ×4 (08:15→21:47)
[2018-09-15] MEDS: Pantoprazole 40 mg EC Tab PO SCH (11:03)
--- NOTE | 2018-09-15 12:13 | CP.PCM.PN ---
Subjective - Date & Time of Evaluation Date of Evaluation: 09/15/18 Time of Evaluation: 08:45 - Subjective Subjective: clinically same Objective - Vital Signs/Intake and Output Vital Signs (last 24 hours): Temp Pulse Resp BP Pulse Ox 97.6 F 84 20 102/68 95 09/15/18 08:08 09/15/18 08:08 09/15/18 08:08 09/15/18 08:08 09/15/18 08:08 Intake and Output: 09/15/18 09/15/18 06:59 18:59 Intake Total 450 Balance 450 - Medications Medications: Current Medications Albuterol (Ventolin Hfa 90 Mcg/Actuation (8 G)) 2 puff IH RQ6 PRN PRN Reason: Shortness of Breath Hydrochlorothiazide (Hydrodiuril) 25 mg PO DAILY [facility] Last Admin: 09/15/18 11:03 Dose: 25 mg Vancomycin HCl 1,250 mg/ (Sodium Chloride) 250 mls @ 166.6 mls/hr IVPB Q12H [facility]; Protocol Last Admin: 09/15/18 02:43 Dose: 166.6 mls/hr Insulin Aspart (Novolog) 0 unit SC ACHS [facility]; Protocol Last Admin: 09/15/18 08:15 Dose: 1 unit Morphine Sulfate (Morphine) 2 mg IVP Q4 PRN PRN Reason: Pain, severe (8-10) Last Admin: 09/15/18 08:11 Dose: 2 mg Pantoprazole Sodium (Protonix Ec Tab) 40 mg PO DAILY [facility] Last Admin: 09/15/18 11:03 Dose: 40 mg - Labs Labs: 09/13/18 08:29 09/13/18 08:29 PT 13.3 SECONDS (9.7-12.2) H 09/04/18 11:10 INR 1.2 09/04/18 11:10 APTT 32 SECONDS (21-34) 09/04/18 11:10 - Constitutional Appears: Well - Head Exam Head Exam: ATRAUMATIC, NORMAL INSPECTION, NORMOCEPHALIC - Eye Exam Eye Exam: EOMI, Normal appearance, PERRL Pupil Exam: NORMAL ACCOMODATION, PERRL - ENT Exam ENT Exam: Mucous Membranes Moist, Normal Exam - Neck Exam Neck Exam: Full ROM, Normal Inspection. absent: Lymphadenopathy - Respiratory Exam Respiratory Exam: Decreased Breath Sounds - Cardiovascular Exam Cardiovascular Exam: REGULAR RHYTHM, +S1, +S2 - GI/Abdominal Exam GI & Abdominal Exam: Soft, Diminished Bowel Sounds - Rectal Exam Rectal Exam: Deferred
[2018-09-16] MEDS: (Novolog) Insulin Aspart, Recombinant 100 u/ml 10 ml vial SC SCH ×4 (09:14→21:54)
[2018-09-16] MEDS: Pantoprazole 40 mg EC Tab PO SCH (09:15)
--- NOTE | 2018-09-16 15:04 | CP.PCM.PN ---
Subjective - Date & Time of Evaluation Date of Evaluation: 09/16/18 Time of Evaluation: 08:00 - Subjective Subjective: iv rx renewed Objective - Vital Signs/Intake and Output Vital Signs (last 24 hours): Temp Pulse Resp BP Pulse Ox 97.4 F L 88 23 122/80 96 09/16/18 08:00 09/16/18 09:16 09/16/18 08:00 09/16/18 09:16 09/16/18 08:00 Intake and Output: 09/16/18 09/16/18 06:59 18:59 Intake Total 950 Balance 950 - Medications Medications: Current Medications Albuterol (Ventolin Hfa 90 Mcg/Actuation (8 G)) 2 puff IH RQ6 PRN PRN Reason: Shortness of Breath Hydrochlorothiazide (Hydrodiuril) 25 mg PO DAILY [facility] Last Admin: 09/16/18 09:15 Dose: 25 mg Vancomycin HCl 1,250 mg/ (Sodium Chloride) 250 mls @ 166.6 mls/hr IVPB Q12H [facility]; Protocol Last Admin: 09/16/18 02:17 Dose: 166.6 mls/hr Insulin Aspart (Novolog) 0 unit SC ACHS [facility]; Protocol Last Admin: 09/16/18 12:19 Dose: 3 unit Morphine Sulfate (Morphine) 2 mg IVP Q4 PRN PRN Reason: Pain, severe (8-10) Last Admin: 09/16/18 12:24 Dose: 2 mg Pantoprazole Sodium (Protonix Ec Tab) 40 mg PO DAILY [facility] Last Admin: 09/16/18 09:15 Dose: 40 mg - Labs Labs: 09/13/18 08:29 09/13/18 08:29 PT 13.3 SECONDS (9.7-12.2) H 09/04/18 11:10 INR 1.2 09/04/18 11:10 APTT 32 SECONDS (21-34) 09/04/18 11:10 - Constitutional Appears: Well - Head Exam Head Exam: ATRAUMATIC, NORMAL INSPECTION, NORMOCEPHALIC - Eye Exam Eye Exam: EOMI, Normal appearance, PERRL Pupil Exam: NORMAL ACCOMODATION, PERRL - ENT Exam ENT Exam: Mucous Membranes Moist, Normal Exam - Neck Exam Neck Exam: Full ROM, Normal Inspection. absent: Lymphadenopathy - Respiratory Exam Respiratory Exam: Clear to Ausculation Bilateral, NORMAL BREATHING PATTERN - Cardiovascular Exam Cardiovascular Exam: REGULAR RHYTHM, +S1, +S2. absent: Murmur - GI/Abdominal Exam GI & Abdominal Exam: Soft, Normal Bowel Sounds. absent: Tenderness - Rectal Exam Rectal Exam: Deferred - Extremities Exam Extremities Exam: Full ROM, Normal Capillary Refill, Normal Inspection. absent: Joint Swelling, Pedal Edema - Back Exam Back Exam: NORMAL INSPECTION - Neurological Exam Neurological Exam: Alert, Awake, CN II-XII Intact, Normal Gait, Oriented x3 - Psychiatric Exam Psychiatric exam: Normal Affect, Normal Mood - Skin Skin Exam: Dry, Intact, Normal Color, Warm Assessment and Plan (1) Abscess of leg, right Status: Acute (2) Hyperglycemia Status: Acute (3) Lower extremity cellulitis Status: Acute - Assessment and Plan (Free Text) Assessment: cont wound care and IV antibiotics
--- NOTE | 2018-09-16 15:10 | CP.PCM.PN ---
Subjective - Date & Time of Evaluation Date of Evaluation: 09/16/18 Time of Evaluation: 08:00 - Subjective Subjective: clinically same Objective - Vital Signs/Intake and Output Vital Signs (last 24 hours): Temp Pulse Resp BP Pulse Ox 97.4 F L 88 23 122/80 96 09/16/18 08:00 09/16/18 09:16 09/16/18 08:00 09/16/18 09:16 09/16/18 08:00 Intake and Output: 09/16/18 09/16/18 06:59 18:59 Intake Total 950 Balance 950 - Medications Medications: Current Medications Albuterol (Ventolin Hfa 90 Mcg/Actuation (8 G)) 2 puff IH RQ6 PRN PRN Reason: Shortness of Breath Hydrochlorothiazide (Hydrodiuril) 25 mg PO DAILY [facility] Last Admin: 09/16/18 09:15 Dose: 25 mg Vancomycin HCl 1,250 mg/ (Sodium Chloride) 250 mls @ 166.6 mls/hr IVPB Q12H [facility]; Protocol Last Admin: 09/16/18 02:17 Dose: 166.6 mls/hr Insulin Aspart (Novolog) 0 unit SC ACHS [facility]; Protocol Last Admin: 09/16/18 12:19 Dose: 3 unit Morphine Sulfate (Morphine) 2 mg IVP Q4 PRN PRN Reason: Pain, severe (8-10) Last Admin: 09/16/18 12:24 Dose: 2 mg Pantoprazole Sodium (Protonix Ec Tab) 40 mg PO DAILY [facility] Last Admin: 09/16/18 09:15 Dose: 40 mg - Labs Labs: 09/13/18 08:29 09/13/18 08:29 PT 13.3 SECONDS (9.7-12.2) H 09/04/18 11:10 INR 1.2 09/04/18 11:10 APTT 32 SECONDS (21-34) 09/04/18 11:10 - Constitutional Appears: Well - Head Exam Head Exam: ATRAUMATIC, NORMAL INSPECTION, NORMOCEPHALIC - Eye Exam Eye Exam: EOMI, Normal appearance, PERRL Pupil Exam: NORMAL ACCOMODATION, PERRL - ENT Exam ENT Exam: Mucous Membranes Moist, Normal Exam - Neck Exam Neck Exam: Full ROM, Normal Inspection. absent: Lymphadenopathy - Respiratory Exam Respiratory Exam: Decreased Breath Sounds - Cardiovascular Exam Cardiovascular Exam: REGULAR RHYTHM, +S1, +S2 - GI/Abdominal Exam GI & Abdominal Exam: Soft, Diminished Bowel Sounds - Rectal Exam Rectal Exam: Deferred
[2018-09-16 17:36] VITALS: RESP 20
[2018-09-17] MEDS: Pantoprazole 40 mg EC Tab PO SCH (10:05)
[2018-09-17] MEDS: (Novolog) Insulin Aspart, Recombinant 100 u/ml 10 ml vial SC SCH ×3 (10:05→21:57)
--- NOTE | 2018-09-17 11:07 | CP.PCM.PN ---
"Subjective - Date & Time of Evaluation Date of Evaluation: 09/17/18 Time of Evaluation: 11:05 - Subjective Subjective: PGY-2 Progress Note: Dr. Ramirez's Service Patient seen and examined at bedside. Patient reports feeling fine during today's examination. Patient denies any chest pain, shortness of breath, fevers, chills, abdominal pain, syncopal episodes, or any other complaints. Objective - Vital Signs/Intake and Output Vital Signs (last 24 hours): Temp Pulse Resp BP Pulse Ox 97.7 F 81 20 120/79 95 09/17/18 08:00 09/17/18 08:00 09/17/18 08:00 09/17/18 08:00 09/17/18 08:00 Intake and Output: 09/17/18 09/17/18 06:59 18:59 Intake Total 480 Balance 480 - Medications Medications: Current Medications Albuterol (Ventolin Hfa 90 Mcg/Actuation (8 G)) 2 puff IH RQ6 PRN PRN Reason: Shortness of Breath Hydrochlorothiazide (Hydrodiuril) 25 mg PO DAILY [facility] Last Admin: 09/17/18 10:10 Dose: 25 mg Vancomycin HCl 1,250 mg/ (Sodium Chloride) 250 mls @ 166.6 mls/hr IVPB Q12H [facility]; Protocol Last Admin: 09/17/18 01:03 Dose: 166.6 mls/hr Insulin Aspart (Novolog) 0 unit SC ACHS [facility]; Protocol Last Admin: 09/17/18 10:05 Dose: 2 unit Morphine Sulfate (Morphine) 2 mg IVP Q4 PRN PRN Reason: Pain, severe (8-10) Last Admin: 09/17/18 07:50 Dose: 2 mg Pantoprazole Sodium (Protonix Ec Tab) 40 mg PO DAILY [facility] Last Admin: 09/17/18 10:05 Dose: 40 mg - Labs Labs: 09/13/18 08:29 09/13/18 08:29 PT 13.3 SECONDS (9.7-12.2) H 09/04/18 11:10 INR 1.2 09/04/18 11:10 APTT 32 SECONDS (21-34) 09/04/18 11:10 - Head Exam Head Exam: ATRAUMATIC, NORMAL INSPECTION - Eye Exam Eye Exam: EOMI, Normal appearance, PERRL Pupil Exam: NORMAL ACCOMODATION - ENT Exam ENT Exam: Mucous Membranes Moist, Normal Oropharynx - Respiratory Exam Respiratory Exam: Clear to Ausculation Bilateral, NORMAL BREATHING PATTERN. absent: Respiratory Distress - Cardiovascular Exam Cardiovascular Exam: REGULAR RHYTHM, +S1, +S2 - GI/Abdominal Exam GI & Abdominal Exam: Soft, Normal Bowel Sounds - Back Exam Back Exam: NORMAL INSPECTION. absent: paraspinal tenderness - Neurological Exam Neurological Exam: Alert, Awake, Oriented x3 - Psychiatric Exam Psychiatric exam: Normal Affect, Normal Mood - Skin Skin Exam: Dry, Intact, Normal Color Assessment and Plan - Assessment and Plan (Free Text) Assessment: 47 year old female with a past medical history of hypertension, asthma, hy perlipidemia, depression, psoriasis, and cellulitis who admitted for evaluation and treatment of b/l lower extremity cellulitis and right lower extremity non- healing ulcer. Plan: Right Lower Extremity Cellulitis with Ulceration. Foot xray (09/04/18): Large soft tissue defect in the heel corresponding to known ulcer. Sclerosis in the posterior calcaneus could be reactive however underlying osteomyelitis cannot be entirely excluded. If clinically indicated, correlation with MRI without and with intravenous contrast may be performed. Tibia/Fibula xray (09/04/18): No acute fracture or bone destruction. No radiographic evidence for osteomyelitis. CT right lower extremity (09/04/18): At the site of the external marker, there is a 1.8 centimeter defect/ulcer within the lateral soft tissues at the level of the mid tibia and fibula. At that level, there is some confluent organizing reticulation and edema measuring up to 1.8 x 1.3 centimeters suggestive for some developing phlegmonous changes but without evidence of discrete abscess collection. There is extension to the adjacent lateral sided musculature. Prominent varicosities seen within medial subcutaneous soft tissues. Diffuse circumferential reticulation and edema within the soft tissues suggestive for a cellulitis. Continued interval follow-up with MRI may be helpful if clinically indicated. Consults: General Surgery (Dr. Torres) | Will consider podiatry consult. -PICC LINE Ordered -Continue Wound Care Medications: Vancomycin 1250mg IVPB Q12 [facility] (To be stopped on September 30) Morphine 2mg IVP Q4 prn HTN -Continue Hydrochlorothiazide 25mg PO DAILY [facility] Diabetes -ISS -Hypoglycemic protocol -Moderate carbohydrate consistent diet Asthma -Albuterol 2 puff IH RQ6 PRN Proph -Protonix -Anticoagulation Dispo: Still awaiting [facility] placement at [facility]. PICC line ordered. Patient be on IV antibiotics for 2-3 weeks (Stop date September 23-September 30) All management per Dr. Daryn Antonio, PGY-2"
--- NOTE | 2018-09-17 21:22 | CP.PCM.PN ---
Subjective - Date & Time of Evaluation Date of Evaluation: 09/17/18 Time of Evaluation: 08:00 - Subjective Subjective: clinically same Objective - Vital Signs/Intake and Output Vital Signs (last 24 hours): Temp Pulse Resp BP Pulse Ox 97.2 F L 85 20 129/79 95 09/17/18 15:00 09/17/18 15:00 09/17/18 15:00 09/17/18 15:00 09/17/18 15:00 Intake and Output: 09/17/18 09/18/18 18:59 06:59 Intake Total 980 Balance 980 - Medications Medications: Current Medications Albuterol (Ventolin Hfa 90 Mcg/Actuation (8 G)) 2 puff IH RQ6 PRN PRN Reason: Shortness of Breath Hydrochlorothiazide (Hydrodiuril) 25 mg PO DAILY [facility] Last Admin: 09/17/18 10:10 Dose: 25 mg Vancomycin HCl 1,250 mg/ (Sodium Chloride) 250 mls @ 166.6 mls/hr IVPB Q12H [facility]; Protocol Last Admin: 09/17/18 14:10 Dose: 166.6 mls/hr Insulin Aspart (Novolog) 0 unit SC ACHS [facility]; Protocol Last Admin: 09/17/18 16:30 Dose: Not Given Morphine Sulfate (Morphine) 2 mg IVP Q4 PRN PRN Reason: Pain, severe (8-10) Last Admin: 09/17/18 16:30 Dose: 2 mg Pantoprazole Sodium (Protonix Ec Tab) 40 mg PO DAILY [facility] Last Admin: 09/17/18 10:05 Dose: 40 mg - Labs Labs: 09/13/18 08:29 09/13/18 08:29 PT 13.3 SECONDS (9.7-12.2) H 09/04/18 11:10 INR 1.2 09/04/18 11:10 APTT 32 SECONDS (21-34) 09/04/18 11:10 - Constitutional Appears: Well - Head Exam Head Exam: ATRAUMATIC, NORMAL INSPECTION, NORMOCEPHALIC - Eye Exam Eye Exam: EOMI, Normal appearance, PERRL Pupil Exam: NORMAL ACCOMODATION, PERRL - ENT Exam ENT Exam: Mucous Membranes Moist, Normal Exam - Neck Exam Neck Exam: Full ROM, Normal Inspection. absent: Lymphadenopathy - Respiratory Exam Respiratory Exam: Decreased Breath Sounds - Cardiovascular Exam Cardiovascular Exam: REGULAR RHYTHM, +S1, +S2 - GI/Abdominal Exam GI & Abdominal Exam: Soft, Diminished Bowel Sounds - Rectal Exam Rectal Exam: Deferred
[2018-09-18] MEDS: (Novolog) Insulin Aspart, Recombinant 100 u/ml 10 ml vial SC SCH (08:30)
[2018-09-18 09:05] VITALS: BP 115/80; PULSE 78; TEMP 98; O2SAT 93
[2018-09-18] MEDS: Pantoprazole 40 mg EC Tab PO SCH (09:40)
== END 2018-09-18 10:15 | DRG 603 ==
LOC: C.ER 10:24 → C.9E 11:45 → OBSVTOIN 11:45 → INTOOBSV 11:45 → C.5S 12:05
PROVIDERS: ADMIT Internal Medicine Nephrology; ATTEND Internal Medicine Nephrology
PROC: 02HV33Z Insertion of Infusion Device into Superior Vena Cava, Percutaneous Approach (ICD-10-PCS; principal; 2018-09-14)
DX: L03.115 Cellulitis of right lower limb (principal); L97.419 Non-pressure chronic ulcer of right heel and midfoot with unspecified severity; L02.415 Cutaneous abscess of right lower limb; L03.116 Cellulitis of left lower limb; E11.65 Type 2 diabetes mellitus with hyperglycemia; Z68.43 Body mass index [BMI] 50.0-59.9, adult; I10 Essential (primary) hypertension; I87.8 Other specified disorders of veins; B95.62 Methicillin resistant Staphylococcus aureus infection as the cause of diseases classified elsewhere; J45.909 Unspecified asthma, uncomplicated; E66.01 Morbid (severe) obesity due to excess calories; E78.5 Hyperlipidemia, unspecified; Z16.23 Resistance to quinolones and fluoroquinolones; F17.210 Nicotine dependence, cigarettes, uncomplicated; F12.90 Cannabis use, unspecified, uncomplicated; Z82.49 Family history of ischemic heart disease and other diseases of the circulatory system